=== PATIENT | male | born 1950 | race Caucasian/White ===

== ENCOUNTER → 2016-07-01 11:01 | Outpatient (CLI) | payer MEDICARE, MEDICAID ==
[2015-12-27 11:03] VITALS: BMI 36.5
[~2016-07-01 11:01] MED LIST: ACETAMINOPHEN-C1 TAB PO; CALCIUM 600 +1 EAC3 PO; CALMOSEPTINE OI71 GM TOPICAL; CELEXA10 MG PO; CIPRO500 MG PO; COGENTIN IM; COLACE100 MG PO; COZAAR50 MG PO; DOXEPIN HCL10 MG PO; ELIQUIS5 MG PO; FLUPHENAZINE HC10 MG PO; FUROSEMIDE20 MG PO; HALDOL DECA100 MG/M1 IM; K-TAB10 MEQ PO; LAMICTAL25 MG PO; LASIX20 MG PO; LIDEX 0.05% OIN15 GM TOPICAL; METOPROLOL TART50 MG PO; MIRALAX17 GM PO; MUCINEX600 MG PO; NEURONTIN 300300 MG PO; NORCO 7.5/325 T1 TA1 PO; NYSTATIN1 PWD TOPICAL; OMEPRAZOLE20 M1 PO; PROAIR HFA8.5 GM INH; SENNA PLUS TA1 UDTAB PO; THERMOTABS 1 GM1 GM PO; ULTRAM50 MG PO; VENTOLIN HFA18 GM INH; VITAMIN D5000 UNIT PO; ZOLOFT50 MG PO; ZYPREXA ZYDI5 MG/TAB PO; ZYPREXA10 MG PO
[2016-08-21 10:17] VITALS: BMI 32.5
== END | disposition home or self-care (01) ==
LOC: D.MRI 11:01
DX: M75.101 Unspecified rotator cuff tear or rupture of right shoulder, not specified as traumatic (principal)

== ENCOUNTER → 2016-08-06 18:52 | Outpatient (CLI) | payer MEDICARE, MEDICAID ==
[2015-12-27 11:03] VITALS: BMI 36.5
[2016-08-21 10:17] VITALS: BMI 32.5
== END | disposition home or self-care (01) ==
LOC: D.LABREF 18:52
DX: M19.011 Primary osteoarthritis, right shoulder (principal); Z11.8 Encounter for screening for other infectious and parasitic diseases

== ENCOUNTER 2016-08-20 11:20 | Inpatient (IN) | payer MEDICARE ==
[~2016-08-20] VITALS: Ht 195.6 cm; Wt 124.3 kg
[~2016-08-20 11:20] MED LIST changes: -ACETAMINOPHEN-C1 TAB PO; -CELEXA10 MG PO; -COGENTIN IM; -FLUPHENAZINE HC10 MG PO; -HALDOL DECA100 MG/M1 IM; -MIRALAX17 GM PO; -NORCO 7.5/325 T1 TA1 PO; -SENNA PLUS TA1 UDTAB PO; -VENTOLIN HFA18 GM INH; -ZYPREXA10 MG PO
[2016-08-20] MEDS ORDERED: CELEXA10 MG PO (12:09)
[2016-08-20] MEDS ORDERED: FLUPHENAZINE HC10 MG PO (12:10)
[2016-08-20] MEDS ORDERED: ACETAMINOPHEN-C1 TAB PO (12:12)
[2016-08-20] MEDS ORDERED: VENTOLIN HFA18 GM INH (12:14)
[2016-08-20] MEDS ORDERED: SENNA PLUS TA1 UDTAB PO (12:17)
[2016-08-20] MEDS ORDERED: THERMOTABS 1 GM1 GM PO (12:18)
[2016-08-20] MEDS ORDERED: MIRALAX17 GM PO (12:18)
[2016-08-20] MEDS ORDERED: NORCO 7.5/325 T1 TA1 PO (12:19)
[2016-08-20 12:55] VITALS: BP 193/98; BMI 32.5
--- NOTE | 2016-08-20 13:15 | NUR ---
PT WAS ADMITTED TO [facility] FROM [facility]. THEY SENT THE PT TO OUR ER DUE TO NON-COMPLIANCE AND INCREASED TEARFULNESS AND ANXIETY. PT HAD ELOPED FROM FACILTIY AND REFUSE TO GO BACK INSIDE. UPON ADMIT THE PT WAS COOPERATIVE BUT VERY TEARFUL. THROUGHOUT THE ASSESSMENT THE PT CONTINUED TO BE ANXIOUS AND DID BECOME VERBALLY AGITATED WITH STAFF WHEN ASKED TO GO TO LUNCH. WATCH AND CELL PHONE SENT TO SAFE BUT PT REFUSED TO GIVE HIS CROSS NECKLACE TO STAFF. FALL PRECAUTIONS INITIATED AND PT GIVEN A WALKER BUT REFUSED TO USE IT. WHEELCHAIR WAS GIVEN. WILL CONTINUE TO MONITOR AND INITIATE PLAN OF CARE. PT IS A FULL CODE PER FACILITY AND PUBLIC GUARDIAN JOI HART. VERBAL CONSENT FOR ADMIT GIVEN BY PUBLIC GUARDIAN.
[2016-08-20 13:21] LABS: APPEARANCE CLEAR (CLEAR); COLOR YELLOW (YELLOW); LEUKOCYTE ESTERASE NEGATIVE (NEGATIVE); SPECIFIC GRAVITY 1.005 (1.005-1.020)
[2016-08-20 13:22] LABS: BILIRUBIN NEGATIVE (NEGATIVE); GLUCOSE NEGATIVE (NEGATIVE); KETONE NEGATIVE (NEGATIVE); NITRITE NEGATIVE (NEGATIVE); PROTEIN NEGATIVE (NEGATIVE); UROBILINOGEN NORMAL (NORMAL)
[2016-08-20 13:34] VITALS: BP 193/98
[2016-08-20 13:42] LABS: BASOPHILS 0.2 % (0.0-2.0); EOSINOPHILS 1.6 % (0-7); HEMATOCRIT 45.1 % (42.0-54.0); HEMOGLOBIN 15.6 g/dL (13.5-17.5); IMMATURE GRANULOCYTES 1.2 % (0-5); LYMPHOCYTES 20.1 % (15-50); MCH 32.5 pg (26.0-34.0); MCHC 34.6 g/dL (31.0-37.0); MEAN PLATELET VOLUME 9.5 fL (7.4-10.4); MONOCYTES 6.3 % (2-11); NEUTROPHILS 70.6 % (40-80); RDW 13.2 % (11.5-14.5); WBC 9.4 10x3/uL (4.8-10.8)
[2016-08-20 13:53] LABS: PLATELET COUNT 190 10x3/uL (130-400)
[2016-08-20 14:03] LABS: HEMOGLOBIN A1C 5.8 % (4.8-6.0)
[2016-08-20 14:19] LABS: ALBUMIN 3.8 g/dL (3.4-5.0); ALKALINE PHOSPHATASE 99 U/L (46-116); ALT (SGPT) 42 U/L (10-68); BILIRUBIN - TOTAL 0.39 mg/dL (0.2-1.3); CALC OSMOLALITY 268 mosm/kg (275-300); CALCIUM 8.9 mg/dL (8.5-10.1); CARBON DIOXIDE 27.3 mmol/L (21.0-32.0); CHLORIDE - SERUM 95 mmol/L (98-107); CHOL - HDL RATIO 4.2 ratio (2.3-4.9); CHOLESTEROL, TOTAL 167 mg/dL (0-200); CREATININE - SERUM 0.7 mg/dL (0.6-1.3); HDL CHOLESTEROL 40 mg/dL (32-96); LDL CHOLESTEROL 84 mg/dL (0-100); LDL-HDL RATIO 2.1 ratio (1.5-3.5); POTASSIUM - SERUM 4.6 mmol/L (3.5-5.1); PROTEIN - SERUM 7.1 g/dL (6.4-8.2); SODIUM 133 mmol/L (136-145); THYROID STIMULATING HORMONE 2.22 uIU/mL (0.36-3.74); TRIGLYCERIDE 218 mg/dL (30-200); UREA NITROGEN 11 mg/dL (7-18); eGFR NON AFRICAN AMERICAN > 90 mL/min (90-120)
[2016-08-20 14:21] LABS: GLUCOSE 179 mg/dL (74-106)
--- NOTE | 2016-08-20 15:22 | NUR ---
PATIENT IS RESTLESS. ROLLING IN AND OUT OF THE DAYROOM/DINING ROOM. HYPERVERBAL. UNREDIRECTABLE. HALDOL 5MG IM ADMINISTERED PER RIGHT DELTOID PER ORDERS.
--- NOTE | 2016-08-20 17:01 | PSY ---
PATIENT NAME:POLA AN MEDICAL RECORD: [id number] : 50 LOCATION:[facility]STY Lyn[facility]0 ADMISSION DATE: 08/20/16 ACCOUNT: [id number] PSYCHIATRIC EVALUATION DATE OF EVALUATION: 08/20/16 Initial Psychiatric Workup IDENTIFYING DATA: This is the second Prison admission on one of numerous lifetime psychiatric contacts for this 66-year-old unmarried white male. HISTORY OF PRESENT ILLNESS: This patient was referred to us from [facility]. He has been housed there for a number of years and carries a previous diagnosis of schizophrenia, chronic undifferentiated type, mild mental retardation and possible vascular dementia. The patient was admitted to this facility in November 2015. At that time, he had become agitated, difficult to redirect and had been making suicidal statements. He was stabilized and sent back to [facility]. On this occasion, the patient has again become increasingly restless, poorly cooperative, demanding pain medication. He states that he is scheduled to have surgery on his right shoulder, but this has not been confirmed. Because of worsening behavior and cognition, the patient is now admitted. PAST MEDICAL HISTORY: Significant for past history of upper respiratory infections and restrictive lung disease. He does have hypertension and gastroesophageal reflux disease. FAMILY HISTORY: Noncontributory. SOCIAL HISTORY: The patient is a long-term [facility] resident. He has never maintained consistent employment. As far as can be determined, the patient does not have a substance abuse history. MENTAL STATUS: On exam, the patient is reclining in bed. He is obviously overweight. He is of tall stature. The patient's mood for the most part is euthymic. Affect, however, is quite peculiar and the patient laughs inappropriately. Speech is at times extremely low in volume and very poorly articulated. This appears to be deliberate on the part of the patient. Content of thought is positive for somatic focus regarding pain medication. The patient has nonspecific paranoid ideation as well. The patient is oriented to person and place, but not correctly as to time. Sensorium testing could not be completed due to poor cooperation. DIAGNOSTIC IMPRESSION: AXIS I: Schizophrenia by history, mild mental retardation, vascular dementia by history. AXIS II: No diagnosis. AXIS III: Obstructive lung disease, hypertension, gastroesophageal reflux disease. AXIS IV: Severe. AXIS V: 32. PLAN: 1. The patient is admitted for further medical and psychiatric workup. 2. We will contact surgery to see if the procedure is actually scheduled. 3. Adjust medications as indicated. TRANSINT:[id number] Voice Confirmation ID: [id number] DOCUMENT ID: [id number] WERNER HARDY III, MD at 1701 CC: [id number] DICTATION DATE: 08/20/16 1158 BRIAR WOOD SORTER: 08/20/16 1552 ADM IN [facility] [address] [id number]
[2016-08-20 19:39] VITALS: BP 194/98
--- NOTE | 2016-08-20 19:46 | NUR ---
RECEIVED IN DINING ROOM. SETTING IN DAYROOM AT TABLE EATING A SNACK. CALM AND COOPERATIVE WITH CARE AND ASSESSMENT. SHOOK THIS NURSES HAND. STATES HE WILL TAKE HIS NIGHT MEDS. REDIRECT AND REORIENT NEEDED. CONTINUES TO SET IN DINING ROOM IN WHEELCHAIR. CONTINUE PLAN OF CARE
--- NOTE | 2016-08-20 21:00 | NUR ---
BECOMING INCREASINGLY ABUSIVE VERBALLY TO STAFF AND PEERS. REDIRECTED AND REORIENTED WITH LIMITED SUCCESS.
[2016-08-21 07:22] LABS: RAPID PLASMA REAGIN Non Reactive (Non Reactive)
[2016-08-21 10:17] VITALS: Ht 195.6 cm; Wt 124.3 kg
[2016-08-21 10:18] LABS: FOLATE (FOLIC ACID) - SERUM 15.3 ng/mL (>3.0); VITAMIN D 25 HYDROXY 65.9 ng/mL (30.0-100.0)
[2016-08-21 10:28] VITALS: BP 106/94
--- NOTE | 2016-08-21 15:06 | NUR ---
DR GAINES'S OFFICE CALLED AND INFORMED OF CONSULT FOR SHOULDER PAIN.
--- NOTE | 2016-08-21 16:51 | NUR ---
(B)RECEIVED PATIENT LAYING IN HIS BED YELLING OUT LOUD. ORIENTED X3. MANIPULATIVE WITH STAFF AEB ONE TIME HE WILL BE COOPERATIVE AND THANKFUL FOR CARE AND THE NEXT TIME PATIENT WILL BE TOTALLY UNCOOPERATIVE AND WILL YELL OUT LOUD, CURSE STAFF, FLIP STAFF OFF AND ACCUSE STAFF OF MISTREATING HIM. WHEN PATIENT IS WANTING EXTRA MEAL TRAYS OR SOMETHING SPECIFIC HE WILL BE THANKFUL AND POLITE HOWEVER WHEN STAFF REQUEST SOMETHING OF HIM HE BECOMES DEFIANT AEB PATIENT GETTING IN THE FLOOR, CURSING STAFF, REFUSING TO GET UP AND THEN ULTIMATELY URINATING ON SELF AND FLOOR IN ADDITION TO VOMITING IN FLOOR. STILL REFUSING TO GET UP UNLESS UNDER HIS TERMS OF GETTING TO GO TO HIS ROOM AND LAY DOWN. (I)ADMINISTER MEDS AND MONITOR COMPLIANCE. MONITOR AND REDIRECT FOR INAPPROPRIATE BEHAVIORS. (R)NON COMPLIANT WITH MEDS. POOR REDIRECTION AND REMAINS UNCOOPERATIVE, VIOLENT AND MANIPULATIVE. (P)CONTINUE POC AND MAINTAIN FALL PRECAUTIONS.
--- NOTE | 2016-08-21 17:55 | NUR ---
PATIENT IS INTERMITTENTLY THREATENING SUICIDE. RELATING IF HE COULD GET OUT OF HERE HE WOULD JUST SLIT HIS WRIST. TELLS STAFF TO KILL HIM OR LET HIM OUT SO HE CAN DO IT. WILL BE TEARFUL AND TALKING OF WANTING TO OR WILL BE YELLING AND CURSING TELLING STAFF HE WANTS TO . BEHAVIOR VERY LABILE AND UNPREDICTABLE.
[2016-08-21 20:00] VITALS: BP 181/90
--- NOTE | 2016-08-21 21:50 | NUR ---
PATIENT WAS RECIEVED IN 1136, SLEEPING. WHEN I INTRODUCED MYSELF AND INFORMED THE PATIENT THAT I NEEDED TO LISTEN TO HIS LUNGS, HE DEMANDED TO KNOW WHY I NEEDED TO DO IT. HE SAID THAT HE DIDN'T WANT TO BE BOTHERED, WHEN I TOLD HIM WE NEEDED TO CHECK ON HIM, REACTION TO MEDICATION, HE REFUSED AND TOLD ME TO LEAVE HIM ALONE. LEFT PATIENT ON ONE TO ONE MONITOR WITH SECURITY. HE WENT BACK TO SLEEP, NO DISTRESS OR PAIN NOTED.
--- NOTE | 2016-08-21 23:07 | NUR ---
PATIENT WENT TO THE BATHROOM, WHEN HE CAME OUT, URINATED ON HIMSELF. REFUSED TO REMOVE OR ALLOW SOMEONE TO REMOVE HIS SCRUBS. PATIENT ALSO HAS A TIGHT CRUCIFIX NECKLACE, PATIENT REFUSED TO REMOVE, SAYING IT'S "FERN FRIDAY". PATIENT THREW APPLESAUCE ACROSS THE ROOM AND CURSED AT [facility]. CONTINUE ONE TO ONE MONITOR.
--- NOTE | 2016-08-21 23:40 | NUR ---
PATIENT ON ONE TO ONE WATCH WITH SECURITY PERSON. PATIENT IN BED, GOT UP TRIED TO HIT THE SECURITY PERSON. PATIENT WALKING IN HALLWAY, CURSING STAFF. 10 MG OF HALDOL I.M. WAS GIVEN AT 2338.
--- NOTE | 2016-08-22 08:40 | NUR ---
B) Patient is awake and alert, he is labile. One minute polite, the next cursing and telling everyone to "F" off. He would not allow me to take his vital signs, patient started trying to cut self with plastic fork at breakfast meal. Had to take fork and meal away as he is cursing and asking staff to bring him a razor to kill himself. Patient is angry, threatening, throwing things around, he is noncompliant. He is not redirectable with any staff members talking to him. I) Haldol 10 mg IM provided in right hip. R) Patient continues to curse and yell and make demands. P) Continue plan of care.
--- NOTE | 2016-08-22 09:00 | PN ---
PATIENT:POLA AN MEDICAL RECORD: [id number] LOCATION:[facility]STY [facility]ne ADMISSION DATE: 08/20/16 PROGRESS NOTE DATE OF SERVICE: 08/21/2016 SUBJECTIVE: The patient voices a number of profanities and invectives. OBJECTIVE: Staff notes indicate that the patient has exhibited extremely disinhibited behavior. He is agitated, attention-seeking and very difficult to redirect. He did require intramuscular Haldol yesterday. He has been using racial slurs and has been deliberately agitating other patients. On exam, the patient's mood is irritable. Affect is extremely brittle and labile. Speech is rambling and overly loud and characterized by profanities. Content of thought is positive for paranoid delusional ideation. Sensorium shows no change. ASSESSMENT: No change in diagnosis. PLAN: 1. We will administer Haldol 10 mg IM immediately for control of agitation. 2. Proceed with Haldol Decanoate 100 mg IM later today. 3. We will discontinue Zyprexa. 4. P.r.n. Cogentin for dystonic symptoms. 5. Continue other current medications. TRANSINT:[id number] Voice Confirmation ID: [id number] DOCUMENT ID: [id number] WERNER HARDY III, MD at 0900 CC: [id number] DICTATION DATE: 08/21/16 1202 PHARMACY SERVICES REPRESENTATIVE: 08/21/16 1735 [place] [address]
--- NOTE | 2016-08-22 09:33 | NUR ---
Offered patient his am meds he refused all except his neurontin, did provide that one pill, he is demanding and saying "Give me a razor blade" He then says "No one cares about me". Patient argues no matter what. He has wet on himself and he will not allow staff to assist and he will not assit himself.
--- NOTE | 2016-08-22 11:00 | NUR ---
Patient is acting out, he is wetting the bed, he is vomitting. He is making demands for a cell phone. Patient is irritable.
--- NOTE | 2016-08-22 11:45 | NUR ---
PT CONTINUES TO BE 1:1 WITH STAFF DUE TO HIS LABILE BEHAVIOR AND SUICIDAL IDEATIONS. ATTEMPTS AT CALMING PATIENT OR EDUCATING HIM IN REGARDS TO ALLOWING STAFF TO HELP HIM CHANGE HIS URINE SOCKED CLOTHING AND BRIEFS ARE UNSUCCESSFUL. WILL CONTINUE TO MONITOR AND CONTINUE WITH PLAN OF CARE.
--- NOTE | 2016-08-22 14:43 | NUR ---
Patient is making demands and getting in MHT's and engineerings face. Patient received Haldol 10 mg IM in right hip, he requested his neurontin and tylenol, but when I went to give the meds to him. He said "I'm not taking the Tylenol" I said ok and then he said "I'm not taking any of it" I said ok and then walked out. He said "no, now I changed my mind, I want the neurontin" I said No, sir and walked out of the room. Patient is playing games and trying to manipulate and control.
--- NOTE | 2016-08-22 14:59 | NUR ---
SW CALLED [facility] TO DISCUSS TRANSFER OF PT. THEY STATED THEY COULDN'T NOT RECIEVE THE TRANSFER DUE TO IT BEING A LATERAL TRANSFER. [facility] STATED THEY HAD NO BED AVAILABILITY.
[2016-08-22 19:30] VITALS: BP 164/95
--- NOTE | 2016-08-22 23:20 | NUR ---
Patient in 1136 with 1:1 monitor. He is hard to understand due to dentition. Patient is remorseful and says he's sorry, than gets agitated. He asked me "How would you like to be in here?" I said I wouldn't like it, so I would recommend trying to get better. He appeared to understand that. Patient non-violent at this time. Cooperated with medication, except for skin cream. Continue to monitor, continue plan of care.
--- NOTE | 2016-08-23 06:48 | NUR ---
Patient was recieved in 1136 sitting on the side of the bed. Patient was crying about his shoulder and how he was unfairly treated here. He said this place was worse than a long term. He asked why they called a code kathie, why did they need 7 people to subdue him. He asked me to pray with him, which I did. He said tell everyone, I'm sorry, he goes from agitation to tearfulness. Continue to monitor
--- NOTE | 2016-08-23 09:00 | NUR ---
B) Patient is awake and alert, he is calming down, he spoke with [facility] [employer]. He apologized and said he was no longer suicidal. He contracts for no self harm. He ambulates in the room, he is a 1:1 with social security assessor. He has been polite and compliant with medications. He refused his lasix. I) Provide prescribed meds, redirect to appropriate behavior. R) Patient is compliant with meds and he is following direction today, he has apologized to this nurse and wanted to apologize to Soheila because he admits he was not acting appropriate. He did talk about his today and he was a bit tearful, but he is better in behavior and he is praying and he is reading scripture out of the Bible. P) Continue plan of care.
[2016-08-23 09:40] VITALS: BP 174/92
--- NOTE | 2016-08-23 15:27 | NUR ---
Patient is much more amiable today, he is talking nicely no cursing, no S.I. and H.I.
[2016-08-23 19:30] VITALS: BP 113/53
--- NOTE | 2016-08-24 02:19 | NUR ---
B) Recieved paient in room 1136 with security at the door, alert and oriented to self and hospital, calm and cooperative this shift, patient said he was sorry for prior behavior earlier this week, I) Administered perscribed medications, redirected as needed, R) Medication compliant, patient was sleepy or asleep most of the shift, arrouses to name, P) Continue plan of care, continue one on one with security.
[2016-08-24 08:00] VITALS: BP 148/64
--- NOTE | 2016-08-24 10:40 | NUR ---
B) Patient remains on 1:1 and continues to still need security as he did grab a tube of medicine out of this nurses hand and the swab to apply med to his face, patient remains psychotic, he did say he still felt like dying, but did not give a plan, he refuses his lasix, but he has 3+ edema to bilateral lower legs. He is hyperverbal and hyper presybeterian. I) Provide prescribed meds. R) Patient requests every med be explained to him and asks "Do you think I should take it" R) Patient has been compliant to take meds except lasix. He also allowed MHT's to help clean him up, but he can do more for himself. P) Continue plan of care.
--- NOTE | 2016-08-24 12:28 | NUR ---
Patient is now asking for a T.V., Brii Madyson said someone told him he could have a T.V. This was never mentioned to me, but there are no T.V.'s in the room and with his labile mood he can not be around the other patients to watch T.V. as he is liable to start acting out in front of them.
[2016-08-24 19:30] VITALS: BP 187/92
--- NOTE | 2016-08-25 01:05 | NUR ---
B) Recieved sitting in room 1136 with security one on one, alert and oriented to self and hospital, calm and cooperative with staff, I) Administered perscribed medications, redirected as needed, R) Medication compliant, no outbursts of aggression, P) Continue plan of care, continue to monitor.
[2016-08-25 07:00] VITALS: BP 177/90
--- NOTE | 2016-08-25 10:26 | NUR ---
PT RECEIVED SITTING UP IN BED IN ROOM 1136. PT IS ALERT AND ORIENTED TO PERSON AND PLACE. PT DENIES PAIN. NO AGGRESSION NOTED. PT IS CALM, PLEASANT AND IS SOCIAL WITH STAFF AND PEERS. NO HALLUCINATIONS OR DELUSIONS NOTED OR REPORTED. PT IS COOPERATIVE WITH STAFF AND IS COMPLIANT WITH MED'S AND CARE. PT IS MONIOTRED BY SECURITY TO ENSURE SAFETY. PT IS REDIRECTED NEEDED. SAFETY MEASURES ARE IMPLEMENTED. CONTINUE WITH PLAN OF CARE. WILL CONTINUE TO MONITOR.
[2016-08-25 19:30] VITALS: BP 153/72
--- NOTE | 2016-08-25 20:03 | NUR ---
RECEIVED IN HALLWAY OUTSIDE OF PATIENT ROOM. SITTING WITH GEM EXPERT. ZEYNEP SAVAGE COOPERATIVE WITH CARE AND ASSESSMENT. SOCIALIZING WITH STAFF AND PEERS. NO SIGNS OF AGGRESSION. DENIES THOUGHTS OF SELF HARM. ENCOURAGE TO EXPRESS NEEDS AND FEELINGS. CONTINUES TO SIT IN CHAIR RELAXING SOCIALIZING. CONTINUE PLAN OF CARE
[2016-08-26 08:32] VITALS: BP 169/74
[2016-08-26] MEDS ORDERED: COGENTIN IM (08:47)
[2016-08-26] MEDS ORDERED: ZYPREXA10 MG PO (08:48)
--- NOTE | 2016-08-26 08:49 | NUR ---
Received patient in room 1136, monitored per security to ensure safety. Alert and oriented to name and place. No aggression noted. Calm and cooperative with care. Pleasant and social with staff and peers. No hallucinations or delusions noted or reported. Patient was compliant with medications last night. Denies any thoughts of self harm. Encouraged to express feelings. In good behavior control with no harm to self or others. Safety maintained. Continue with plan of care.
[2016-08-26] MEDS ORDERED: HALDOL DECA100 MG/M1 IM (08:51)
--- NOTE | 2016-08-26 08:56 | PN ---
PATIENT:POLA AN MEDICAL RECORD: [id number] LOCATION:MISTY Ferrara112 ADMISSION DATE: 08/20/16 PROGRESS NOTE DATE OF SERVICE: 08/22/2016 SUBJECTIVE: The patient claims that no one is paying attention to him. OBJECTIVE: The patient has continued to show very volatile behavior. He has become combative on several occasions and security has had to be called. In order to help manage the patient, he has received p.r.n. injections of Haldol twice to control his agitation. He did receive Haldol Decanoate 100 mg IM yesterday. Routine Zyprexa 10 mg twice a day has been reinstituted. On exam, the patient's mood is very irritable. Affect is childlike and brittle. Speech is characterized by profanities and yelling. Content of thought is positive for suicidal statements as well as paranoid delusional ideation. Sensorium shows no change. ASSESSMENT: No change in diagnosis. PLAN: 1. We will maintain current treatment regimen. 2. Continue close observation. TRANSINT:[id number] Voice Confirmation ID: [id number] DOCUMENT ID: [id number] WERNER HARDY III, MD at 0856 CC: [id number] DICTATION DATE: 08/22/16 1140 ADVERTISING DISPLAY ROTATOR: 08/22/16 1845 ADM IN [place] [id number] [id number]
--- NOTE | 2016-08-26 12:00 | NUR ---
[facility] staff here to transport patient back to facility. Calm and cooperative. Pleasant and social with others. Discharged without incident. All personal belongings released to patient.
--- NOTE | 2016-08-26 13:41 | PN ---
PATIENT:POLA AN MEDICAL RECORD: [id number] LOCATION:MISTY Ferrara112 ADMISSION DATE: 08/20/16 PROGRESS NOTE DATE OF SERVICE: 08/23/2016 SUBJECTIVE: The patient's case was discussed with staff. He has no new complaint. OBJECTIVE: The patient has become more compliant taking some of his medications. He has apologized to some of the nursing staff for his behavior and he denies suicidal thoughts. ASSESSMENT: No change in diagnoses. PLAN: Current medicines have been reviewed and will be maintained. Long-term prognosis is guarded. TRANSINT:[id number] Voice Confirmation ID: [id number] DOCUMENT ID: [id number] MELISSA CAPPS MD at 1341 CC: [id number] DICTATION DATE: 08/23/16 1348 CREW PERSON: 08/23/162030 DIS IN 08/26/[address] [facility] [address] [place] [address]
--- NOTE | 2016-08-28 10:02 | DS ---
PATIENT:POLA AN :50 MEDICAL RECORD: [id number] DISCHARGE SUMMARY ADMISSION DATE: 08/20/16 DISCHARGE DATE: 08/26/16 DATE OF ADMISSION: 08/20/2016 DATE OF DISCHARGE: 08/26/2016 HISTORY OF PRESENT ILLNESS: Second Detention admission for this 66-year-old unmarried white male. The patient carries a previous diagnosis of schizophrenia, mild mental retardation and vascular dementia. The patient had been admitted to other psychiatric facilities throughout his lifetime. At the time of this admission, the patient had become very restless, very poorly cooperative, demanding of pain medication and had been making suicidal statements as well. For further details, please see previously dictated history. COURSE IN THE HOSPITAL: The patient was seen in consultation by Dr. Morgan. Dr. Morgan noted the presence of hypertension, osteoarthritis, GERD, restrictive lung disease and right shoulder pain. The patient presented a treatment challenge. From the onset, he was extremely uncooperative. He became quite combative with routine care. He was extremely hostile and demeaning toward staff in terms of his behavior and his comments. He did require the use of a intramuscular Haldol for control of his extreme agitation and combativeness. On several occasions, assistance had to be brought to the unit in order to administer care and medication. It was elected to administer Haldol Decanoate 100 mg IM on the third hospital day. He was also treated with Zyprexa 10 mg twice a day and maintained on a previous dose of Celexa 10 mg daily. On this regimen of medication, the patient began to show some improvement and by the time of discharge, was much more cooperative and calm. He was felt to be stable enough to return to the correction environment. FINAL DIAGNOSES: AXIS I: Schizophrenia, chronic undifferentiated type, vascular dementia. AXIS II: Mild mental retardation, cluster B personality traits. AXIS III: Hypertension, osteoarthritis, restrictive lung disease, gastroesophageal reflux disease. AXIS IV: Moderate. AXIS V: 40. PLAN: 1. The patient is discharged on current medication. Haldol Decanoate should be administered at 100 mg IM every 28 days. 2. Diet and activities as tolerated. 3. Follow up with primary care physician. TRANSINT:[id number] Voice Confirmation ID: [id number] DOCUMENT ID: [id number] DISCHARGE SUMMARY REPORT [id number] CADWALPOLA KNAPP III, WERNER Pacheco MD at 1002 CC: [id number] DICTATION DATE: 08/26/16 1126 ART TEACHER: 08/27/16 0044 DIS IN 08/26/16 [facility] [address] [place] [address]
== END 2016-08-26 12:00 | DRG 885 ==
LOC: D.PSYCH 11:20
PROVIDERS: ADMIT Psychiatry & Neurology Psychiatry
DX: F20.5 Residual schizophrenia (principal); F01.51 Vascular dementia, unspecified severity, with behavioral disturbance; F79 Unspecified intellectual disabilities; I10 Essential (primary) hypertension; M25.511 Pain in right shoulder; L40.9 Psoriasis, unspecified; K21.9 Gastro-esophageal reflux disease without esophagitis; J98.4 Other disorders of lung

== ENCOUNTER 2019-12-30 11:25 | Inpatient (IN) | payer MEDICARE ==
[~2019-12-30 11:25] MED LIST changes: +ACETAMINOPHEN-C1 TAB PO; +CELEXA10 MG PO; +COGENTIN IM; +FLUPHENAZINE HC10 MG PO; +HALDOL DECA100 MG/M1 IM; +MIRALAX17 GM PO; +NORCO 7.5/325 T1 TA1 PO; +SENNA PLUS TA1 UDTAB PO; +VENTOLIN HFA18 GM INH; +ZYPREXA10 MG PO
[2019-12-30] MEDS ORDERED: NORVASC10 MG (15:50)
[2019-12-30] MEDS ORDERED: LIPITOR10 MG (15:50)
[2019-12-30] MEDS ORDERED: LIPITOR10 MG PO (15:51)
[2019-12-30] MEDS ORDERED: SYMBICORT 16010.2 GM INH (15:52)
[2019-12-30] MEDS ORDERED: FISH OIL 1,0001 CA1 PO (15:53)
[2019-12-30] MEDS ORDERED: NEURONTIN 400400 MG PO (15:53)
[2019-12-30] MEDS ORDERED: MUCINEX600 MG (15:54)
[2019-12-30] MEDS ORDERED: CLARITIN 10 MG10 MG PO (15:55)
[2019-12-30] MEDS ORDERED: LISINOPRIL5 MG PO (15:55)
[2019-12-30] MEDS ORDERED: IPRAT-ALBUT 0.5-3 ML (15:55)
[2019-12-30] MEDS ORDERED: MAG-OX 400 MG400 MG PO (15:56)
[2019-12-30] MEDS ORDERED: METOPROLOL TART25 MG PO (15:57)
[2019-12-30] MEDS ORDERED: GLUCOPHAGE500 MG (15:57)
[2019-12-30] MEDS ORDERED: PROCARDIA XL60 MG (15:58)
[2019-12-30] MEDS ORDERED: HYDROCODON-ACE1 EAC2 PO (15:59)
[2019-12-30] MEDS ORDERED: PROTONIX FOR OR40 MG PT (15:59)
[2019-12-30] MEDS ORDERED: PAXIL40 MG PO (16:00)
--- NOTE | 2019-12-30 16:00 | NUR ---
The patient arrived here from [facility]. He is brought by two staff. He is in w/c and he can self propel. He is able to stand and transfer with staff assist. He has a scratch to his right lower ear lobe. He has a scratch to his lower back. He has bilateral 3+ edema in his feet and lower legs. He is a full code he is under the services of Carline Wall with Adult Protective Services. Apparently at the [facility] he was noncompliant with medications and he has a urinary tract infection. His behavior was changing and he began talking out of his head. He became increasingly more paranoid and became aggressive with staff. He has a hx of schizophrenia and he tells us that he is allergic to Haldol and that it worsens his behavior and he becomes more aggressive. At this time he is pleasant and he said "I won't hurt you ma'am." He has a cell phone, watch, flashlight, and a wallet. Called Admissions to pick it up as the patient wants to sign for it. Admissions relayed that it will be awhile before they are able to pick it up. Continue to monitor his mood and behavior.
[2019-12-30] MEDS ORDERED: BACTRIM DS TAB1 EAC1 PO (16:03)
[2019-12-30] MEDS ORDERED: ZYPREXA10 MG ×2 (16:04)
[2019-12-30 16:14] VITALS: BP 139/72; BMI 37.2
--- NOTE | 2019-12-30 16:42 | NUR ---
The patient did bring his personal w/c.
[2019-12-30 20:19] VITALS: BP 133/75
--- NOTE | 2019-12-30 22:22 | NUR ---
RECEIVED PATIENT IN DAYROOM, IN WHEEL CHAIR, LABILE, HYPERVERBAL, REFUSED MEDS INTIALLY BUT DID TAKE THEM HAPPILY, CONFUSED, LITTLE GRANDIOSE THINKING. WILL FOLLOW POC
[2019-12-31 07:27] LABS: BASOPHILS 0.2 % (0-2); HEMOGLOBIN 14.3 g/dL (13.5-17.5); IMMATURE GRANULOCYTES 0.9 % (0-5); MCH 31.6 pg (26.0-34.0); MCHC 33.3 g/dL (31.0-37.0); MCV 94.9 fL (80.0-100.0); MEAN PLATELET VOLUME 9.6 fL (7.4-10.4); MONOCYTES 6.6 % (2-11); NEUTROPHILS 67.3 % (40-80); PLATELET COUNT 245 10x3/uL (130-400); RBC 4.53 10x6/uL (4.20-6.10); RDW 12.9 % (11.5-14.5); WBC 12.2 10x3/uL (4.8-10.8)
[2019-12-31 07:58] LABS: CHOL - HDL RATIO 3.9 ratio (2.3-4.9); LDL-HDL RATIO 2.1 ratio (1.5-3.5)
[2019-12-31 08:57] VITALS: Wt 66.9 kg
--- NOTE | 2019-12-31 11:45 | NUR ---
PT REFUSED HIS MEDICATIONS STATING THAT IF THE NURSE CANT NOT SPELL HIS NAME THEN HE CAN NOT TAKE MEDS FROM HER. NURSE ASKED TO SCAN PT ARMBAND PT REFUSED. PT REFUSED MEDS STATING I HAVE THE RIGHT TO REFUSE ALL THOSE MEDS YOU HAVE LINED OUT FOR ME TAKE THEM YOURSELF." NURSE ATTEMPTED TO EDUCATE PT ON HOW REFUSING MEDS MAKES STAYS LONGER IN THE UNIT. THE DOCTOR IS THE ONLY ONE THAT CAN RELEASE PTS.
[2019-12-31 14:10] VITALS: BP 166/74
--- NOTE | 2019-12-31 15:09 | NUR ---
PT WAS ON ANTIBIOTICS AT [facility] FOR A UTI. UNABLE TO OBTAIN U/A DUE TO PT PREVIOUS ANTIBIOTIC USAGE.
--- NOTE | 2019-12-31 15:14 | NUR ---
PT INCREASING BECAME AGITATED, DEMANDING. STAFF ATTEMPTED TO RESOLVE PTS NEEDS. PT INCREASED IN VERBAL AGGRESSION. ATIVAN 0.5 MG IM ADMINISTERED PER DR. CAPPS ORDER. WILL CONT TO MONITOR.
--- NOTE | 2019-12-31 17:50 | NUR ---
PT CAME TO NURSE AND REQUESTED SOME MORE ATIVAN WITHOUT ALL THE PEOPLE TO WATCH. NURSE ADMINISTERED ATIVAN 0.5 MG PO FOR ANXIETY. PT TOOK ALL MEDS DUE AT THAT TIME. PT IS FRIENDLY WITH STAFF AND PEERS. PT CAN BE LABILE AT TIMES. REDIRECT BEHAVIOR AND REORIENT IF NEEDED. PT REQUEST 1X OR 2X BRIEFS AND [facility] WAS REQUESTED TO BRING THE SIE THE PT REQUIRES. PT IS IN A W/C. CHAIR ALARM IN PLACE AND ACTIVE. WILL CONT PLAN OF CARE. PT DID REFUSE ALL MEDS THIS A.M.
--- NOTE | 2019-12-31 20:00 | NUR ---
RECEIOVED IN DAYROOM, SOCIALIZING WITH STAFF. CALM AND COOPERATIVE WITH CARE AND ASSESSMENT. REFUSED TO TAKE MEDICATIONS TONIGHT FROM ANYONE. REDIRECT AND REORIENT NEEDED. CONTINUE PLAN OF CARE.
[2019-12-31 20:08] VITALS: BP 136/73
--- NOTE | 2020-01-01 09:18 | NUR ---
pt sitting in w/c socializing with peers. pt has been friendly with staff and peers. pt conts to refuse medications. pt took some select meds in food this shift. staff conts to encourage pt to take meds, elevate feet due to 4+ swelling noted in bilateral legs and ankles. pt is confused and alert to person, place and time. pt can be argumentative at times. staff will cont to redirect behaviors and encourage pt to comply with meds and care given. pt can stand and transfer per self. minimual requirement required with adls. pt is eating well and compliant with FSBS. chair alarm in place and active. will cont plan of care.
[2020-01-01 09:54] VITALS: BP 123/73
--- NOTE | 2020-01-01 10:02 | NUR ---
The patient continues to talk nonstop. He tells staff we should know all 35 of the patient rights. He enjoys arguing. He is in his own w/c and he self propels easily. Provide prescribed meds. Staff crushed some of his meds in his coke and his oatmeal and he consumed part of them. Will monitor his behavior. He has not shown any aggression this am. Continue POC.
--- NOTE | 2020-01-01 15:37 | HP ---
PATIENT: POLA AN MEDICAL RECORD: [id number] ACCOUNT: [id number] LOCATION:[facility] : 50 ADMISSION DATE: 12/30/19 PCP: TONI MARKHAM MD HISTORY AND PHYSICAL EXAMINATION IDENTIFYING DATA: The patient is a 69-year-old male patient that was admitted from a local shelter, who appears older than his stated age. CHIEF COMPLAINT: Increased delusions and agitated behavior. HISTORY OF PRESENT ILLNESS: The patient is a long-term resident of the facility. Resident is ADL dependent and is on a consistent carb diet. The patient has tangential thoughts, which resolved around temple. The patient was reportedly aggressive with his roommate. The patient reports that his roommate will be sad because he will not go to watch TV because he had the remote from the patient. The patient then began refusing medications. Staff report that he was talking out of his head that became very paranoid and also became very aggressive with staff within the last couple of days. The patient has been on various medications that have helped stabilize him, most recently with Zyprexa 5 mg in the morning and 10 mg at bedtime. The patient reports what does not help him is his current roommate who he states is a felon. The patient has a history of schizophrenia and some dementia with behaviors. PAST MEDICAL HISTORY: Includes urinary tract infection, insomnia, and GERD. He has muscle weakness. He has dysphagia, muscle wasting and atrophy, heart failure, COPD, and hyperlipidemia. PAST PSYCHIATRIC HISTORY: Includes, Schizoaffective disorder, bipolar 1, paranoid schizophrenia, schizophrenia unspecified, unspecified dementia without behavioral disturbances, vascular dementia without behavioral disturbances, and schizoaffective paranoid schizophrenia. ALLERGIES: INCLUDE HALDOL. CURRENT MEDICATIONS: Include, Zyprexa 5 mg p.o. every a.m., Zyprexa 10 mg every bedtime, Neurontin 400 mg 4 times daily, metformin, metoprolol, Procardia-XL, hydrocodone/acetaminophen 7.5/325, omeprazole, Protonix, Paxil, MiraLax, senna, Docusate sodium, Bactrim, acetaminophen, albuterol, amlodipine, Eliquis, Lipitor, Symbicort, calcium - vitamin D3, citalopram, fish oil, Lasix 20 mg, gabapentin 400 mg take by mouth 3 times daily, Humibid 600 mg by mouth 2 times daily, and nebulizer as needed, Lisinopril, Claritin, and magnesium oxide. SOCIAL HISTORY: The patient reports that he was and that his in 2008, right after his granddaughter had the previous month before. The patient reports he worked various jobs. He reports that he has 2 years of college; however, he has not worked since 1995 related to a disability. The patient reports that he gave up smoking. He denies any alcohol use or any illegal substance. TRAUMA: The patient doesn't want to discuss any emotional, physical, or sexual trauma. MENTAL STATUS EXAM: The patient is alert and oriented to person, place, time, and event. His speech is low rate, low tone, low volume. The patient has good eye contact. Patient is sitting in a wheelchair. No evidence of psychomotor HISTORY AND PHYSICAL [id number] CADWALLADER,POLA D retardation or agitation. His mood is depressed and anxious. His affect is flat, blunted, and narrow in range. The patient does not exhibit suicidal ideation or homicidal ideation. The patient does have some auditory hallucinations, which are related to Harlan and temple. The patient does not appear to have any visual hallucinations. The patient does have some mild delusions. His general knowledge is appropriate for his education, but difficult to assess. His digit span was difficult to assess and deferred. Problem interpretation is minimal to absent. His judgment and insight are poor. His impulsivity is high. His memory is fair for both recent and remote events. His strengths are his ability to communicate his needs. His weaknesses are poor psychosocial support. DIAGNOSES: AXIS I: Dementia and schizophrenia. AXIS II: Deferred AXIS III: Include hyperlipidemia, hypertension, osteoporosis, insomnia, hypokalemia, GERD, AFib, vitamin D deficiency, chronic back pain, COPD, and diabetes. AXIS IV: Moderate stressors. AXIS V: Global assessment of function is 30. PLAN: At this time, the patient is to be admitted to the hospital secondary to his aggressive, agitated, and confused behaviors associated with a dementing illness and chronic serious mental illness. He will be comprehensively evaluated from both a medical, psychological, and social standpoint. He will be treated with both mood and thought stabilizing medications and memory enhancing medications. His long-term prognosis is guarded. Time spent greater than 30 minutes. Dictated By: Shari Gautam APN I have interviewed/examined the above patient and agree with these documented findings. TRANSINT:[id number] Voice Confirmation ID: [id number] DOCUMENT ID: [id number] Dictated By: SHARI GAUTAM I have interviewed/examined the above patient and agree with these documented findings. MELISSA CAPPS MD at 1537 at 1129 CC: [id number] DICTATION DATE: 12/30/191810 ZINC PLATE CUTTER: 12/30/19 2207 ADM IN [facility] [address] [id number]
--- NOTE | 2020-01-01 17:05 | NUR ---
PT SITTING IN 1136 AT THIS TIME. STAFF ATTEMPTED MULTIPLE TIMES TO REDIRECT PT INTO OTHER ROOM WITH STAFF. PT CONT TO COME INTO THE KITCHEN REMOVING FOOD FROM THE FRIDGE DESPITE STAFF REDIRECTING PT TO NOT REMOVE FOOD FROM THE FRIDGE. PT CONTS TO REFUSED ALL MEDS. PT IS VERBALLY AGGRESSIVE WITH STAFF, ARGUEMENTATIVE. WHEN ASKED TO COME BACK TO THE DAYAREA PT STATED "WELL LUDWIG BEEN PISSING AND SHITTING SO WHEN I EAT I HAVE TO SHIT AND IF I LEAVE NEXT TIME ILL SHIT IN YOUR HAND AND YOULL HAVE TO CLEAN IT UP. IM NOT DOING IT SO GO AWAY AND GET OUT OF HERE" WHILE WAVING HIS HAND DISMISSIVELY. GEODON 10 MG IM GIVEN PER DR. CAPPS ORDER. STAFF DID HAVE SECURITY PRESENT DURING ADMINISTRATION OF PRN. WILL CONT TO MONITOR PTS BEHAVIOR.
--- NOTE | 2020-01-01 18:00 | NUR ---
CONTINUES TO REFUSE MEDS AND BE ARGUMENTIVE WITH STAFF.THREATENING STAFF WITH LAW SUITE FOR HOLDING HIM HERE AND FOR GIVING HIM A SHOT.
--- NOTE | 2020-01-01 18:51 | NUR ---
PT STATED "WHAT YALL ARE DOING HERE IS AGAINST THE LAW AND THAT THE LAW THAT RUNS THE SKILLED NURSING APPLIES HERE AND YALL ARE GOING TO THE COURT" NURSE ATTEMPTED TO EXPLAIN THAT THIS UNIT AND THE SKILLED NURSING ARE DIFFERENT. HE STATED WELL SAVE IT FOR THE INSURANCE ADMINISTRATOR. NURSE DID NOT ARGUE STATED OKAY.
[2020-01-01 20:00] VITALS: BP 121/68
--- NOTE | 2020-01-01 21:10 | NUR ---
RECEIVED IN DAYROOM. SITTING IN A WHEELCHAIR WITH PEERS AT HIS SIDE. CALM AND COOPERATIVE WITH CARE AND ASSESSMENT. NO SIGNS OF AGGRESSION. NO SIGNS OF PARANOIA. REDIRECT AND REORIENT NEEDED. CONTINUES TO SIT CALMLY IN DAYROOM. CONTINUE PLAN OF CARE.
--- NOTE | 2020-01-01 22:25 | NUR ---
PATIENT REFUSED ALL PM MEDS.
--- NOTE | 2020-01-01 23:24 | NUR ---
UNCOOPERATIVE. PULLED BED ALARM OUT FROM UNDER HIMSELF AND PUT ON THE FLOOR. ALARM SOUNDING. PLACED RYLAND PAD BACK OM BED.
--- NOTE | 2020-01-02 07:00 | NUR ---
REC'D PT IN HALLWAY WITH PEERS BY NURSES STATION. PT DEGRADING STAFF AT THIS TIME. PT IS VERY RUDE AND DEMANDING TO STAFF AND PEERS. ASSESSMENT COMPLETED. PT CAN BECOME EASILY AGITATED. REDIRECT AND REORIENT NEEDED. PT REFUSED MOST MORNING MEDS. DEMANDED DOUBLE PORTIONS FOR BREAKFAST. CALLED [facility] FOR PTS REQUEST. FALL PRECAUTIONS IN PLACE. WILL CPOC.
[2020-01-02 09:18] VITALS: BP 141/70
--- NOTE | 2020-01-02 11:49 | NUR ---
The patient refused to get weighed this am and he refused to do the incentive spirometer. He said "Unless the says I have I am not doing it."
--- NOTE | 2020-01-02 19:27 | NUR ---
RECEIVED IN DAYROOM. SITTING ON THE SOFA WITH EYES CLOSED. RESPONDS TO VOCIE. CALM AND COOPERATIVE WITH ASSESSMENT AT THIS TIME. NO SIGNS OF AGGRESSION. REDIRECT AND REORIENT NEEDED. CONTINUES TO SIT CALMLY IN DAYROOM. CONTINUE PLAN OF CARE.
[2020-01-02 20:04] VITALS: BP 161/94
[2020-01-02 20:06] VITALS: BP 161/94
--- NOTE | 2020-01-02 21:00 | NUR ---
pt refused all medications at this time. attempted to crush meds for administration. pt took some of meds and refused rest of med.
--- NOTE | 2020-01-03 00:03 | NUR ---
pt called for mht to come into his room. mht called for nurses to come to pts room. pt was sitting in w/c in room stating "yall are hilter and yall are going to kill me tonight. she isnt a nurse she isnt nothing." pt then began asking nursing staff their education levels stating "yall are not 4 year nurses yajames cant take care of me. cheko aint doctors." staff attempted to redirect behaviors 3x unable to redirect paranoid behaviors. staff offered to reposition bed which was done. pt stated to nurse "tell me my age. cause you are going to have to in the court of law. read me my pts rights." nurse explained that he had a copy of his pts rights. he was well aware of pts rights. and that the nurse was treating pt within his pt rights." pt became verbally aggressive with staff. geodon 10 mg im given per order. 3x assist assisted with pts medication administration. pt refused to lay down in bed at this time. pt is at the nurses station with nurses at this time. pt stated "he will throw himself into the floor so that we can pick him up." will cont to monitor behaviors at this time.
--- NOTE | 2020-01-03 01:50 | NUR ---
prn effective at this time. pt in bed.
--- NOTE | 2020-01-03 08:57 | NUR ---
Nutrition Follow-up: Diet: Diabetic, Double Portions PO intake: 100% x 6 meals Last BM: 01/03/20 x 2. WT: 289# (12/31/19); Admit WT: 289# (12/30/19) Meds noted: senokot, miralax, lasix, metformin Labs noted: POC Glu 129(H), A1C 6.6(H) Recommend continue current diet. RD following.
--- NOTE | 2020-01-03 12:00 | NUR ---
RECEIVED IN HALLWAY OUTSIDE OF NURSES STATION. CALM AND COOPERATIVE WITH CARE AND ASSESSMENT. NO AGGRESSION TODAY. RUDE AND DEMANDING TO STAFF AT TIMES. REDIRECT AND REORIENT NEEDED. EATING AT THIS TIME. CONTINUE PLAN OF CARE.
[2020-01-03 19:51] VITALS: BP 175/85
--- NOTE | 2020-01-03 20:13 | NUR ---
RECEIVED IN DINING AREA. DEFIANT WITH CARE. CALLS THIS NURSE HITLER. ENOURAGE TO TAKE PM MEDS BUT REFUSED. REDIRECT AND REORIENT NEEDED. CONTINUES TO SIT IN DINGIN AREA. CONTINUE PLAN OF CARE.
--- NOTE | 2020-01-04 00:30 | NUR ---
Barricading door. Educated that this is not allowed due to safety. Voiced understanding.
--- NOTE | 2020-01-04 02:33 | NUR ---
Continues to barricade door. Called nurse Linda when redirected not to barricade door. Then stated he wanted MHT arrested for coming into his room to check on him.
--- NOTE | 2020-01-04 05:16 | NUR ---
PT REFUSES AM FSBS, INSULIN AND AM PROTONIX. EDUCATED PT ON IMPORTANCE OF INSULIN. PT VERBALIZED UNDERSTANDING AND STILL REFUSED.
--- NOTE | 2020-01-04 13:00 | NUR ---
REC'D PT IN BED WITH EYES OPEN. PT IS REFUSING TO GET OUT OF BED. PT IS VERY RUDE AND DEMANDING WITH STAFF. PT BECAME AGGRESSIVE WITH STAFF. CODE MUSCLE CALLED FOR ASSISTANCE. PRN GEODON 10MG IM GIVEN PER PRN ORDER. PT REFUSES MORNING MEDS X 3. REDIRECT AND REORIENT NEEDED. FALL PRECAUTIONS IN PLACE. WILL CPOC.
--- NOTE | 2020-01-04 15:08 | PN ---
PATIENT:POLA AN MEDICAL RECORD: [id number] LOCATION:[facility] ADMISSION DATE: 12/30/19 PROGRESS NOTE DATE OF SERVICE: 01/03/2020 SUBJECTIVE: The patient's case was discussed with staff. He has no new complaint. OBJECTIVE: The patient is adamant that he is not going to take medication. He says he does not need any. He denies that he would seek to harm himself or others. He is pleasant, but again insists that he is not going to take the medications. ASSESSMENT: 1. Schizophrenia. 2. Dementia. PLAN: The patient is disorganized with paranoid beliefs and needs psychiatric medications. I will discuss this with him again tomorrow and we will encourage him to be medication compliant. TRANSINT:[id number] Voice Confirmation ID: [id number] DOCUMENT ID: [id number] MELISSA CAPPS MD at 1508 CC: [id number] DICTATION DATE: 01/03/20 1502 POWER ELECTRONICS ENGINEER: 01/03/20 2321 ADM IN [place] [id number] [place] [id number]
[2020-01-04 20:11] VITALS: BP 147/73
--- NOTE | 2020-01-04 20:30 | NUR ---
RECEIVED IN DAYROOM. SITTING IN A WHEELCHAIR WITH PEERS AT HIS SIDE. CALM AND COOPERATIVE WITH CARE AND ASSESSMENT. STATES HE WILL GIVE US A U/A WHEN HE CAN. NO SIGNS OF AGGRESSION OR PARANOIA. REDIRECT AND REORIENT NEEDED. CONTINUES TO SIT CALMLY IN DAYROOM. CONTINUE PLAN OF CARE.
--- NOTE | 2020-01-04 23:15 | NUR ---
PATIENT IS VERY COOPERATIVE WITH CARE TODAY. GAVE A URINE SAMPLE, TOOK A SHOWER, POLITE WITH STAFF AND PEERS AND TOOK ALL PO PM MEDS.
[2020-01-04 23:31] LABS: BACTERIA NONE SEEN /hpf (NEGATIVE); BILIRUBIN NEGATIVE (NEGATIVE); EPITHELIAL CELLS NSEEN /hpf (0-5); GLUCOSE NEGATIVE (NEGATIVE); KETONE NEGATIVE (NEGATIVE); NITRITE NEGATIVE (NEGATIVE); RED CELLS - URINE NONE SEEN /hpf (0-5); UROBILINOGEN NORMAL (NORMAL); WHITE CELLS - URINE 0-5 /hpf (NEGATIVE)
--- NOTE | 2020-01-05 06:54 | NUR ---
PATIENT REFUSED PROTONIX SUSP THIS AM.
[2020-01-05 08:13] LABS: CALC OSMOLALITY 267 mosm/kg (275-300); CALCIUM 9.5 mg/dL (8.5-10.1); CARBON DIOXIDE 29.6 mmol/L (21.0-32.0); CHLORIDE - SERUM 97 mmol/L (98-107); CREATININE - SERUM 0.9 mg/dL (0.6-1.3); POTASSIUM - SERUM 4.7 mmol/L (3.5-5.1); SODIUM 132 mmol/L (136-145); UREA NITROGEN 19 mg/dL (7-18); eGFR NON AFRICAN AMERICAN 89 mL/min (90-120)
[2020-01-05 08:14] LABS: GLUCOSE 119 mg/dL (74-106)
[2020-01-05 08:37] LABS: HEMATOCRIT 44.3 % (42.0-54.0); HEMOGLOBIN 14.9 g/dL (13.5-17.5); LYMPHOCYTES 20.6 % (15-50); MCH 31.6 pg (26.0-34.0); MCHC 33.6 g/dL (31.0-37.0); MCV 94.1 fL (80.0-100.0); MEAN PLATELET VOLUME 9.6 fL (7.4-10.4); NEUTROPHILS 72.4 % (40-80); PLATELET COUNT 247 10x3/uL (130-400); RBC 4.71 10x6/uL (4.20-6.10); RDW 13.3 % (11.5-14.5); WBC 13.2 10x3/uL (4.8-10.8)
[2020-01-05 10:20] VITALS: BP 143/75
--- NOTE | 2020-01-05 10:48 | NUR ---
Nutrition Follow-up: Diet: Diabetic Double Portions PO intake: ~88% average x last 9 meals Last BM: 01/04/20. Wt: 289# (12/31/19); Admit Wt: 289# (12/30/19) Meds noted: lasix, senokot, miralax, metformin Labs noted: Na 97(L), BUN 19(H), Glu 119(H) Recommend continue current diet. RD following.
--- NOTE | 2020-01-05 12:28 | NUR ---
The patient is awake and he is calm today. He refused to take his am meds, but then he agreed to take them. He asked the PT staff if he would work with him. He has not shown any aggression. He still has edematous legs. Explained to him that he needs to take his lasix and elevate his legs. Text Dr. Iniguez to ask her to unhold the po lasix and d/c the IM as the patient said he will be compliant with meds. Continue POC.
--- NOTE | 2020-01-05 16:23 | PN ---
PATIENT:POLA AN MEDICAL RECORD: [id number] LOCATION:[facility] ADMISSION DATE: 12/30/19 PROGRESS NOTE DATE OF SERVICE: 01/04/2020 SUBJECTIVE: The patient's case was discussed with staff. He has no new complaint. OBJECTIVE: The patient is refusing oral medications. He is doing so for reasons that are delusional. His feet and legs are badly swollen, but he refuses to take a diuretic. ASSESSMENT: Schizophrenia. PLAN: I am going to order a Haldol Decanoate shot for the patient. Hopefully, the antipsychotic medication will help him organize his thinking and become more compliant with treatment. TRANSINT:[id number] Voice Confirmation ID: [id number] DOCUMENT ID: [id number] MELISSA CAPPS MD at 1623 CC: [id number] DICTATION DATE: 01/04/20 1511 B2B SALES MANAGER: 01/04/20 2109 ADM IN [facility] [address] [id number]
--- NOTE | 2020-01-05 17:45 | NUR ---
pt is calm did refuse to make afternoon medications. reported to dr. torres. will speak with pt about refusal.
[2020-01-05 20:00] VITALS: BP 139/70
--- NOTE | 2020-01-05 20:49 | NUR ---
RECEIVED IN DAYROOM. SITTING QUIETLY TO HIMSELF. CALM AND COOPERATIVE WITH CARE AND ASSESSMENT. NO AGGRESSION. REDIRECT AND REORIENT NEEDED. SITTING IN GROUP AT THIS TIME. CONTINUE PLAN OF CARE.
[2020-01-06 10:11] VITALS: BP 129/70
--- NOTE | 2020-01-06 13:47 | NUR ---
TOOK MOST OF HIS MEDS THIS AM BUT REFUSED 3 OF HIS BP/HEART MEDS.ARGUMENTIVE WITH STAFF AT TIMES.PROPELLS SELF IN WHEELCHAIR.WILL CONTINUE WITH CURRENT PLAN OF CARE,MONITOR FOR CHANGES AND SAFETY.
--- NOTE | 2020-01-06 15:40 | NUR ---
NURSE ADMINSTERED NOW DOSE OF LASIX 20 MG IM PER DOCTOR ORDER. PT TOLERATED WELL. STAFF ENCOURAGES PT TO PROP FEET UP AND PT CONTS TO REFUSE TO PROP FEET UP. PT DID TAKE A.M. LASIX BUT IS INCONSISTANCE TAKING PO MEDICATIONS. STAFF CONTS TO ENCOURAGE TO TAKE MEDS. WILL CONT TO MONITOR.
--- NOTE | 2020-01-06 16:51 | PN ---
PATIENT:POLA AN MEDICAL RECORD: [id number] LOCATION:[facility] ADMISSION DATE: 12/30/19 PROGRESS NOTE DATE OF SERVICE: 01/05/2020 SUBJECTIVE: The patient's case was discussed with staff. He has no new complaint. OBJECTIVE: The patient was cooperative with medicines since yesterday. He did receive an injection of Geodon. He still is delusional. ASSESSMENT: Schizophrenia. PLAN: Current medicines have been reviewed and will be maintained. Long-term prognosis is guarded. NTS:[id number] Voice Confirmation ID: [id number] DOCUMENT ID: [id number] MELISSA CAPPS MD at 1651 CC: [id number] DICTATION DATE: 01/05/201657 STRUCTURAL DESIGN ENGINEER: 01/05/20 1902 ADM IN [facility] [address] [place] [address]
--- NOTE | 2020-01-06 18:08 | NUR ---
PT COMPLIANT WITH MEDS AT THIS TIME. WILL CONT TO MONITOR.
[2020-01-06 19:36] VITALS: BP 124/78
--- NOTE | 2020-01-07 01:45 | NUR ---
B) Patient is alert and oriented to person, place and time, difficult at times, baiting staff and verbally abusive at times, I) Administered scheduled medications as ordered, monitored for safety R) Medication compliant, P) Continue plan of care.
[2020-01-07 09:41] VITALS: BP 125/88
--- NOTE | 2020-01-07 11:21 | NUR ---
The patient self propels in a w/c. He is pleasant and has not tried to argue or become aggressive this am. He interacts well with staff and peers. He is participating in groups and activities. Provide prescribed meds. The patient is compliant with meds. Continue POC.
--- NOTE | 2020-01-07 13:12 | PN ---
PATIENT:POLA AN MEDICAL RECORD: [id number] LOCATION:[facility] ADMISSION DATE: 12/30/19 PROGRESS NOTE DATE OF SERVICE: 01/06/2020 SUBJECTIVE: The patient's case was discussed with staff. He has no new complaint. OBJECTIVE: The patient is in good behavioral control. He has limited insight about his situation. ASSESSMENT: Dementia. PLAN: Brief supportive and educational interventions were made. Long-term prognosis is guarded. He has been started on Geodon scheduled dose 20 mg at bedtime. TRANSINT:[id number] Voice Confirmation ID: [id number] DOCUMENT ID: [id number] MELISSA CAPPS MD at 1312 CC: [id number] DICTATION DATE: 01/06/20 180 REGIONAL FLATBED TRUCK DRIVER: 01/06/20 2100 ADM IN [facility] [address] [place] [address]
[2020-01-07 20:00] VITALS: BP 106/52
--- NOTE | 2020-01-07 21:54 | NUR ---
B.) PT IS ALERT AND ORIENTED X4. HE IS ARGUMENTATIVE WITH STAFF AND LABILE AT TIMES. HE IS OBSERVED SOCIALIZING WITH PEERS. HE USES A WHEELCHAIR TO ASSIST WITH AMBULATION. HE IS ABLE TO VOICE HIS NEEDS AND WANTS. I.) PROVIDED PM MEDICATIONS. REDIRECT NEEDED. R.) COMPLIANT AFTER BEING ARGUMENTATIVE WITH STAFF. DIFFICULT TO REDIRECT. P.) WILL CONTINUE TO MONITOR.
[2020-01-08 05:52] LABS: ANION GAP 10.3 mmol/L (8-16); CALCIUM 9.2 mg/dL (8.5-10.1); CARBON DIOXIDE 29.7 mmol/L (21.0-32.0); CREATININE - SERUM 1.1 mg/dL (0.6-1.3)
[2020-01-08 09:51] VITALS: BP 143/65
--- NOTE | 2020-01-08 10:12 | NUR ---
The patient is awake and alert and he is conversing with staff and his peers, he and another patient pray. He is calm and he has not shown any aggression today and so far this am he has not tried to argue with staff. Provide prescribed meds. The patient is compliant with meds. He is able to stand and transfer. He self propels in a w/c. Continue POC.
--- NOTE | 2020-01-08 16:20 | NUR ---
The patient requests to toilet, staff took him to his room and he then refused to come out of his room and he began preaching "[facility] is supposed to provide adequate and sanitary provisions." The patient has a clean bathroom, but he is now harping on the facilities being provided. A code mcduffie is called and he received ativan 0.5 mg IM in his left deltoid. Monitor. The patient did come out of his room, but the security expert came and escorted him to the day room.
--- NOTE | 2020-01-08 16:30 | NUR ---
Another patient's family was here visiting and this patient was saying in a loud terse manner "I need to go to the bathroom and I demand that you call the jn." Explained to him that "I am not speaking with him at this time." The patient is being rude and condescending. He said "I hope you go to hell." Told him that is not very nice. He said more derogative comments, but this nurse allowed him to vent on his own.
--- NOTE | 2020-01-08 17:00 | NUR ---
Aleshia Souza T took the patient to the bathroom and Aleshia assisted him to the toilet. He told Aleshia "I hope you eat sh-- and ." He is behaving in a beligerant manner. He is labile, earlier in the day he was friendly and telling staff "God Bless You." Now he is rude, terse, and argumentative.
--- NOTE | 2020-01-08 17:42 | NUR ---
The patient is sitting at the table and he is eating his dinner. He is talking and being a smart flaquita to staff, but he is conversing to the other patients in a calm manner.
--- NOTE | 2020-01-08 18:11 | NUR ---
The patient is trying to talk to this nurse and pick a fight and argue. Told him at this time I was not speaking with him because he wants to argue and we are not going to do that at this time.
[2020-01-08 20:00] VITALS: BP 142/73
--- NOTE | 2020-01-08 22:48 | NUR ---
B.) PT IS ALERT AND ORIENTED X4. HE IS ARGUMENTATIVE AND DEMANDING. HE IS RUDE AND INTRUSIVE WITH STAFF. HE IS SELF ABSORBED AT TIMES. HE USES A WHEELCHAIR TO ASSIST WITH AMBULATION. I.) PROVIDED PM MEDICATIONS PRESCRIBED. REDIRECT OFTEN. R.) COMPLIANT WITH MOST MEDICATIONS. DIFFICULT TO REDIRECT. P.) WILL CONTINUE TO MONITOR.
--- NOTE | 2020-01-08 23:23 | NUR ---
PT IS AGGITATED AND AGGRESSIVE WITH STAFF. HE IS DEMANDING AND INTRUSIVE WITH OTHER PTS CARE. HE STATES "GOD BLESS YOU BITCH." REDIRECT MANY TIMES. WILL CONTINUE TO MONITOR.
--- NOTE | 2020-01-09 08:20 | NUR ---
The patient is in a bad mood. He is attempting to interrupt staff during report. He is making snide remarks. Since staff ignored his remarks he chose to go back to his room, he closed his door, and sat in front of it and barricaded it. Greg Ramsay T attempted to open the door, but he has it blocked. He refused to open the door and come out. Staff called a code mcduffie. The physical security engineer came and Cherelle Chaparro RN are at the door slowly prying the door open so that he is being backed away. After opening it a small bit the physical security engineer got in the room and retrieved the patient. The patient is telling the physical security engineer to arrest him and read him his rights. He is being derogatory with his comments and berating the nurses for hurting a poor innocent patient and how the nurse should use the silent night and take their own meds. He is nonsensical and delusional. Provided Alisa THEODORE in his left deltoid. Monitor his mood and behavior.
--- NOTE | 2020-01-09 09:44 | NUR ---
The patient refused his am medication, vital signs, and refuses to elevate his legs. They are red and edematous. He took his socks off and will not keep foot coverings on his feet. He wants to argue and be condescending.
--- NOTE | 2020-01-09 10:37 | NUR ---
The patient politely asked for a cup of iced water. Provided him a cup. He asked for a chair to put his feet up. Staff offered him the rubina chair, he went over to the rubina chair and instead of sitting it it he propped his feet up in the chair. He is reading the Bible, but he is falling asleep.
--- NOTE | 2020-01-09 12:37 | NUR ---
The patient has been badgering staff and trying to manipulate to get them to argue and fight with him, he will even self propel himself closer to taunt and pick at the staff. He is using derogatory language and being inappropriate. Calling [facility] a "Nigger" Requested the director information security to come in case the patient fights. Provided the patient Ativan 0.5 mg IM in his right deltoid. The patient tolerated it without a fight.
--- NOTE | 2020-01-09 13:03 | NUR ---
The patient continues to be derogatory and say mean disrespectful things to staff. He is attention seeking and manipulative. He keeps telling the other patient's "They keep giving me shot after shot after shot."
--- NOTE | 2020-01-09 13:30 | NUR ---
The patient tried to to talk to this nurse. He said "Sha, do you know why I blocked the door this morning?" Looked at him and said "No" He said "Well, you don't care and you're uninterested." Let the patient roll away. Not debating with the patient. He continues to make threats that he is going to take the nurses to court and they will lose their licenses.
--- NOTE | 2020-01-09 15:26 | NUR ---
The patient continues to be rude to staff. He tries to insult them and provoke a fight or an argument. He spoke to Dr. Iniguez about why he got so angry and she told him he was being unreasonable. He would not listen. He takes a fraction of the truth and blows it out of proportion. He listens to all conversations and he makes remarks.
[2020-01-09 19:19] VITALS: BP 168/86
--- NOTE | 2020-01-09 20:04 | NUR ---
RECEIVED IN DAYROOM AREA. SITTING IN A CHAIR WITH PEERS AT HIS SIDE. CALM AND COOPERATIVE WITH CARE AND ASSESSMENT. NO SIGNS OF AGGRESSION. REDIRECT AND REORIENT NEEDED. SITTING IN DINING ROOM AREA WITH PEERS AT THIS TIME. CONTINUE PLAN OF CARE.
--- NOTE | 2020-01-09 20:40 | NUR ---
ENCOURAGED TO TAKE MEDS BUT REFUSED ALL PM MEDS.
--- NOTE | 2020-01-10 01:20 | NUR ---
VERBALLY ABUSIVE WITH STAFF. REFUSES TO COOPERATE WITH CARE AND DIRECTIONS. BECOMES AGGRESSIVE WITH STAFF.
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
--- NOTE | 2020-01-10 06:55 | NUR ---
IN ROOM RESTING QUIETLY ON THE FLOOR.
--- NOTE | 2020-01-10 07:45 | NUR ---
PT IS AWAKE AND ALERT. CALM AND COOPERATIVE WITH ASSESSMENT. PT TOOK AM THIS THIS SHIFT. PT HAS MADE SI STATEMENTS THIS SHIFT. PT PRESENT WITH STAFF AT ALL TIMES FOR SAFETY. PRESCRIBED MEDS PROVIDED ORDERED. REDIRECT AND REORIENT NEEDED. FALL PRECAUTIONS IN PLACE. WILL CPOC.
[2020-01-10 10:09] VITALS: BP 163/83
[2020-01-10 11:57] LABS: BASOPHILS 0.2 % (0-2); EOSINOPHILS 0.8 % (0-7); HEMATOCRIT 44.2 % (42.0-54.0); HEMOGLOBIN 14.6 g/dL (13.5-17.5); IMMATURE GRANULOCYTES 0.5 % (0-5); LYMPHOCYTES 11.4 % (15-50); MCH 31.4 pg (26.0-34.0); MCV 95.1 fL (80.0-100.0); MEAN PLATELET VOLUME 9.6 fL (7.4-10.4); MONOCYTES 4.9 % (2-11); NEUTROPHILS 82.2 % (40-80); PLATELET COUNT 243 10x3/uL (130-400); RBC 4.65 10x6/uL (4.20-6.10); WBC 13.3 10x3/uL (4.8-10.8)
[2020-01-10 12:03] LABS: ANION GAP 10.6 mmol/L (8-16); CALCIUM 9.1 mg/dL (8.5-10.1); CARBON DIOXIDE 29.3 mmol/L (21.0-32.0); CREATININE - SERUM 1.1 mg/dL (0.6-1.3); POTASSIUM - SERUM 3.9 mmol/L (3.5-5.1)
--- NOTE | 2020-01-10 20:01 | NUR ---
RECEIVED IN HALLWAY TO DINING ROOM. SITTING IN A WHEELCHAIR. NEGATIVE STATEMENTS ABOUT STAFF VOICED. REFUSED VITALS. NO SIGNS OF AGGRESSION AT THIS TIME. REDIRECT AND REOREINT NEEDED. MOVING AROUND DAY AREA IN WHEELCHAIR AT THIS TIME. CONTINUE PLAN OF CARE.
[2020-01-11 09:46] VITALS: BP 139/75
--- NOTE | 2020-01-11 12:22 | NUR ---
PT SITTING IN W/C WITH PEERS IN DAYROOM. ASSESSMENT COMPLETED. PRESCRIBED MEDS PROVIDED. MEDS REFUSED X 3. PT IS AGITATED WITH STAFF AND PEERS AT THIS TIME. REDIRECT AND REORIENT NEEDED. PT IS DEMANDING TO STAFF. FALL PRECAUTIONS IN PLACE. WILL CPOC.
--- NOTE | 2020-01-11 13:48 | NUR ---
PATIENT IS VERBALLY ABUSIVE WITH STAFF. URINATED IN FLOOR, THEN ACTED LIKE HE URINATED IN THE FLOOR TWO MORE TIMES BUT IT WAS ACTUALLY COOL WATER. HE CONTINUES TO BE VERBALLY ABUSIVE WITH STAFF. EVEN TO THE POINT OF TELLING A NURSE THAT HE HOPES HER BABY DIES. MULTIPLE STATEMENTS CONCERNING HER BABY DYING BEING MADE.
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
--- NOTE | 2020-01-11 16:37 | PN ---
PATIENT:POLA AN MEDICAL RECORD: [id number] LOCATION:[facility] ADMISSION DATE: 12/30/19 PROGRESS NOTE DATE OF SERVICE: 01/10/2020 SUBJECTIVE: The patient's case was discussed with staff. He has no new complaint. OBJECTIVE: The patient has not been taking his medicines. He has been agitated and has required p.r.n. medication for that agitation. He cannot give me an explanation that is meaningful as to why he will not take his medicines. I have discussed with him the general principle that were just simply trying to help him both emotionally and physically and he was accepting of this and said that he would take his medications. A little while after I spoke with him, he told the nurse that he was going to have to kill himself because his medicines were never going to work. ASSESSMENT: No change in diagnoses. PLAN: Current medicines and therapies have been reviewed. It is difficult to adjust medications in some one who will not take them most of the time. I think the best effort at this point can be to try to convince the patient to take medications as prescribed. TRANSINT:[id number] Voice Confirmation ID: [id number] DOCUMENT ID: [id number] MELISSA CAPPS MD at 1637 CC: [id number] DICTATION DATE: 01/10/20 1749 SIGN ERECTOR: 01/10/202120 ADM IN [facility] [address] [place] [address]
[2020-01-11 20:01] VITALS: BP 137/63
--- NOTE | 2020-01-12 02:52 | NUR ---
B) Patient is alert and oriented to person and place, rude and argumentive followed by 'I'm sorry ' and attempts at staff spliting, I) Administered scheduled medications as ordered, redirected as needed, R) Partially medication compliant, would not take his clonipine, statin, or blood pressure medications at HS, his reason for not taking his medications appears to his way of controlling and not for medical reasons. P) Continue plan of care.
[2020-01-12 07:52] VITALS: BP 137/69
--- NOTE | 2020-01-12 10:13 | NUR ---
The patient refused his Lasix injection. He did however take all his po am meds, but d/t his low bp held his bp meds.
--- NOTE | 2020-01-12 10:23 | NUR ---
The patient is awake and he is alert, he is being more polite at this time. He is calm and he has not been mean. He is in a w/c and his legs are red and edematous. Provide prescribed meds. The patient is compliant with meds today. Monitor for his labile mood and behavior. Continue POC.
--- NOTE | 2020-01-12 12:43 | PN ---
PATIENT:POLA AN MEDICAL RECORD: [id number] LOCATION:[facility] ADMISSION DATE: 12/30/19 PROGRESS NOTE DATE OF SERVICE: 01/11/2020 SUBJECTIVE: The patient's case was discussed with staff. He has no new complaint. OBJECTIVE: The patient denies intent to harm himself or others. He is delusional and not compliant with medications today. ASSESSMENT: 1. Dementia. 2. Schizophrenia. PLAN: Supportive and educational interventions were made. The patient's situation is very serious. He is in need of medications, not just for mental health, but for diabetes and he has a high or significant amount of pedal edema. TRANSINT:[id number] Voice Confirmation ID: [id number] DOCUMENT ID: [id number] MELISSA CAPPS MD at 1243 CC: [id number] DICTATION DATE: 01/11/20 1642 ORGAN PIPE VOICER: 01/11/20 2339 ADM IN [place] [id number] [place] [id number]
--- NOTE | 2020-01-12 13:40 | NUR ---
Nutrition Follow-up: Diet: Diabetic Double Portions PO intake: ~92% average x last 9 meals Last BM: 01/12/20. WT: 291# (01/09/20); Admit Wt: 289# (12/30/19) Meds noted: lasix, senokot, miralax, metformin. Labs noted: POC Glu 235(H) Recommend continue current diet. RD following.
--- NOTE | 2020-01-12 19:30 | NUR ---
B.) PT IS ALERT AND ORIENTED TO X4. HE IS WITHDRAWN AND SELF ISOLATED TODAY. HE REMAINS IN THE DINING AREA. HE REFUSES TO JOIN THE OTHER PTS. HE IS ABLE TO MAKE HIS NEEDS KNOWN AND IS DEMANDING WITH STAFF AT TIMES. I.) PROVIDED PM MEDICATIONS PRESCRIBED. REDIRECT NEEDED. R.) NON-COMPLIANT WITH ALL MEDICATIONS. DIFFICULT TO REDIRECT. P.) WILL CONTINUE TO MONITOR.
[2020-01-12 20:33] VITALS: BP 148/77
--- NOTE | 2020-01-12 21:42 | NUR ---
PT IS PACING THE HALLS. HE IS RUDE AND DEMANDING WITH STAFF. HE IS THREATENING TO BECOME PHYSICALLY AGGRESSIVE WITH STAFF MEMBERS. IMPOSSIBLE TO REDIRECT. ADMINISTERED IM ATIVAN 0.5MG. WILL CONTINUE TO MONITOR.
--- NOTE | 2020-01-12 23:12 | NUR ---
PT IS RESTING CALMLY IN HIS WHEELCHAIR IN HIS ROOM. NO DISTRESS NOTED. WILL CONTINUE TO MONITOR.
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
--- NOTE | 2020-01-13 10:00 | NUR ---
The patient has not settled he is trying to watch TV in the other room, it was fine until he turned the volume up. Took the remote control away from him.
--- NOTE | 2020-01-13 10:40 | NUR ---
The patient went into the bathroom and staff are checking on him, he has fallen asleep on the toilet. Will monitor.
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
--- NOTE | 2020-01-13 15:23 | NUR ---
The patient is sitting in the go or the bathroom and anytime anyone walks by he curses them out. He refuses to take his medication. He doesn't want to listen and he has a snide, rude comment for everyone.
--- NOTE | 2020-01-13 16:37 | NUR ---
The patient refuses his medications, he continues to be rude and tries to push buttons.
--- NOTE | 2020-01-13 17:30 | NUR ---
The patient said during dinner. "I don't want any food, I never want to eat again." This nurse filled his menus out anyway for Friday and Friday.
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
[2020-01-13 20:06] VITALS: BP 157/82
--- NOTE | 2020-01-14 01:16 | NUR ---
B) Patient is alert and oriented to person and place, rude to staff, refusing all medications, stated several time " god bless you, your all going to hell" I) Offered HS medications, redirected as needed, R) Refused all medications, sullen and disrespectful aditude toward staff and other patients, self isolating. P) Continue plan of care.
--- NOTE | 2020-01-14 09:23 | NUR ---
Offered the patient his am medication. He adamantly refused. Due to the fact that he is irritable, and condescending to staff and other patients, crushed his po prolixin in his diet coke. At first he said he was not going to eat or drink, but he drank his diet coke and he ate his breakfast. Staff and the Dr. have explained to him that he needs the medication d/t the edema in his bilateral feet and legs. Also explained to him that he has elevated WBC's and he has an infection. The patient says "So, what carry me to the morgue." The patient is psychotic and he is grandiose in the belief that he is highly intelligent and everyone else is stupid. Continue to monitor his mood and behavior. Continue POC.
--- NOTE | 2020-01-14 12:43 | PN ---
PATIENT:POLA AN MEDICAL RECORD: [id number] LOCATION:[facility] ADMISSION DATE: 12/30/19 PROGRESS NOTE DATE OF SERVICE: 01/13/2020 SUBJECTIVE: The patient's case was discussed with staff. He has no new complaint. OBJECTIVE: The patient is very delusional. He is angry with staff. He has been aggressive and threatening with staff. He is paranoid and delusional. He is noncompliant with medications. ASSESSMENT: 1. Dementia. 2. Schizophrenia. PLAN: The patient's current medications will be changed. I am going to stop the scheduled Geodon and give him scheduled doses of Prolixin. I am going to increase his Geodon injection that is p.r.n. to 20 mg on an as needed basis. He is a potentially dangerous man and his medication noncompliance is problematic from a treatment standpoint. TRANSINT:[id number] Voice Confirmation ID: [id number] DOCUMENT ID: [id number] MELISSA CAPPS MD at 1243 CC: [id number] DICTATION DATE: 01/13/20 1353 DIRECTOR FUNERAL: 01/13/20 1714 ADM IN [facility] [address] [place] [id number]
--- NOTE | 2020-01-14 15:20 | NUR ---
The patient refuses his 1500 po prolixin.
[2020-01-14 20:10] VITALS: BP 148/90
--- NOTE | 2020-01-15 02:07 | NUR ---
B) RECEIVED IN DINING ROOM, SOCIALIZING WITH PEERS AND STAFF. ALERT AND ORIENTED TO PERSON AND PLACE. I) ADMINISTERED PM MEDICATIONS. REDIRECTED NEEDED, R) COMPLIANT WITH TAKING ALL MEDICATIONS. MONITOR FOR SAFETY AND BEHAVIORS. P) CONTINUE POC.
[2020-01-15 09:30] VITALS: BP 154/83
--- NOTE | 2020-01-15 10:40 | NUR ---
RECEIVED THIS AM UP IN WHEELCHAIR.ATTENTION SEEKING.REFUSES MEDS FROM THIS NURSE THEN LATER CALLS OUT TO THIS NURSE THAT HE WILL TAKE ANY MEDS I HAVE FOR HIM.MEDS TAKEN WITHOUT DIFFICULTY.RESTLESS,PROPELLS SELF ABOUT UNIT.WILL CONTINUE WITH CURRENT PLAN OF CARE,MONITOR FOR CHANGES AND SAFETY.
--- NOTE | 2020-01-15 13:50 | NUR ---
pt requested cream for the red areas on his face. nurse stated that medication was not ordered due to pt refusal of treatment. and that nurse would have to contact doctor for a order. pt became agitated and stated "you have my cream in your hand." nurse explained that medication was for another pt and we would have to order pt his own cream. did not verbalize understanding.
--- NOTE | 2020-01-15 14:30 | NUR ---
GEODON 20MG IM GIVEN TO LEFT DELTOID DUE TO THREATENING KARIN XIE .THREATENED TO POOP AND STUFF IT DOWN HER THROAT WHEN CONFRONTED ABOUT STOOL FOUND ON FLOOR.
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
--- NOTE | 2020-01-15 14:51 | NUR ---
pt refused 1500 medication prolixin 5 mg. will cont to monitor pts behavior.
--- NOTE | 2020-01-15 15:00 | NUR ---
GOOD RESPONSE TO GEODON.
[2020-01-15 17:20] LABS: BASOPHILS 0.4 % (0-2); EOSINOPHILS 3.1 % (0-7); HEMATOCRIT 44.2 % (42.0-54.0); HEMOGLOBIN 14.8 g/dL (13.5-17.5); IMMATURE GRANULOCYTES 1.5 % (0-5); LYMPHOCYTES 20.2 % (15-50); MCH 31.7 pg (26.0-34.0); MCHC 33.5 g/dL (31.0-37.0); MCV 94.6 fL (80.0-100.0); MEAN PLATELET VOLUME 9.4 fL (7.4-10.4); MONOCYTES 8.7 % (2-11); NEUTROPHILS 66.1 % (40-80); PLATELET COUNT 261 10x3/uL (130-400); RBC 4.67 10x6/uL (4.20-6.10); RDW 12.9 % (11.5-14.5); WBC 10.6 10x3/uL (4.8-10.8)
[2020-01-15 17:43] LABS: ALBUMIN 3.7 g/dL (3.4-5.0); ANION GAP 8.9 mmol/L (8-16); BILIRUBIN - TOTAL 0.35 mg/dL (0.2-1.3); CARBON DIOXIDE 29.4 mmol/L (21.0-32.0); CREATININE - SERUM 1.1 mg/dL (0.6-1.3); POTASSIUM - SERUM 4.3 mmol/L (3.5-5.1); PROTEIN - SERUM 7.7 g/dL (6.4-8.2)
[2020-01-15 19:16] VITALS: BP 166/84
--- NOTE | 2020-01-15 21:00 | NUR ---
B.) PT IS ALERT AND ORIENTED X4. HE IS CALM AND COOPERATIVE WITH STAFF. HE IS RECEIVED IN THE DAYROOM IN HIS WHEELCHAIR. HE IS ABLE TO VOICE NEEDS AND WANTS. I.) PROVIDED PM MEDICATIONS PRESCRIBED. REDIRECT NEEDED. R.) COMPLIANT WITH ALL MEDICATIONS. EASY TO REDIRECT. P.) WILL CONTINUE TO MONITOR.
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
--- NOTE | 2020-01-16 06:22 | NUR ---
PT IN BED WITH EYES CLOSED. NO DISTRESS NOTED. WILL CONTINUE TO MONITOR.
--- NOTE | 2020-01-16 09:00 | NUR ---
REC'D PT IN DINING ROOM. ASSESSMENT COMPLETED AT THIS TIME. PT REFUSED HIS AM MEDS X 3. REDIRECT AND REORIENT NEEDED. PT IS QUIET AT THIS TIME. PT CONTINUES TO REFUSE MEDS. STATES " I DO NOT WANT THEM." FALL PRECAUTIONS IN PLACE. WILL CPOC.
[2020-01-16 09:47] VITALS: BP 140/70
--- NOTE | 2020-01-16 20:10 | NUR ---
RECEIVED IN DINING ROOM AREA. CALM AND COOPERATIVE WITH CARE AND ASSESSMENT. NO SIGNS OF AGGRESSION. NO SIGNS OF PARANOIA. REDIRECT AND REOREINT NEEDED. IN DAYROOM WATCH TV AT THIS TIME. CONTINUES TO SIT CALMLY. CONTINUE PLAN OF CARE.
[2020-01-16 20:14] VITALS: BP 186/90
[2020-01-17 09:19] VITALS: BP 181/83
--- NOTE | 2020-01-17 12:00 | NUR ---
RECEIVED IN HALLWAY OUTSIDE OF NURSES STATION. CALM AND COOPERATIVE WITH CARE AND ASSESSMENT. BUT LATER BECAME AGITATED AND REFUSED MEDICATIONS. YELLING AND CURSING AT STAFF. REDIRECT AND REORIENT NEEDED. EATING AT THIS TIME. CONTINUE PLAN OF CARE.
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
--- NOTE | 2020-01-18 08:00 | NUR ---
PT IS AWAKE AND ORIENTED X 3. ASSESSMENT COMPLETED. PRESCRIBED MEDS ORDERED. PT REFUSED MEDS X 3. REDIRECT AND REORIENT NEEDED. FALL PRECAUTIONS IN PLACE. WILL CPOC.
--- NOTE | 2020-01-18 10:02 | PN ---
PATIENT:POLA AN MEDICAL RECORD: [id number] LOCATION:[facility] ADMISSION DATE: 12/30/19 PROGRESS NOTE DATE OF SERVICE: 01/17/2020 SUBJECTIVE: The patient's case was discussed with staff. He has no new complaint. OBJECTIVE: The patient is intermittently compliant with medications, which is better than a week ago when he was flatly noncompliant. Unfortunately, today he is angry, delusional and will not speak to me and uses some vulgar language to express. With regard to his behaviors on the unit, they have been disruptive, but not to a level that have required p.r.n. medication. He is eating well. He is sleeping adequately, but he is not consistently taking his medications and his lower extremities are badly edematous. He will not keep his feet propped up. He will not take Lasix and I suspect he is probably going to develop a cellulitis soon. TRANSINT:[id number] Voice Confirmation ID: [id number] DOCUMENT ID: [id number] MELISSA CAPPS MD at 1002 CC: [id number] DICTATION DATE: 01/17/20 1646 CAR SALTER: 01/18/20 0012 ADM IN [place] [id number] [place] [address]
[2020-01-18 10:11] VITALS: BP 137/84
[2020-01-18 20:53] VITALS: BP 119/61
--- NOTE | 2020-01-18 21:55 | NUR ---
RECEIVED IN DINING ROOM AREA. SITTING BY HIMSELF. CALM AND COOPERATIVE WITH CARE AND ASSESSMENT. NO SIGNS OF AGGRESSION. REDIRECT AND REOREINT NEEDED. CONTINUES TO KEEP TO HIMSELF. CONTINUE PLAN OF CARE.
[2020-01-19 09:40] LABS: CALC OSMOLALITY 263 mosm/kg (275-300); CALCIUM 9.1 mg/dL (8.5-10.1); CARBON DIOXIDE 29.3 mmol/L (21.0-32.0); CHLORIDE - SERUM 93 mmol/L (98-107); CREATININE - SERUM 0.8 mg/dL (0.6-1.3); GLUCOSE 142 mg/dL (74-106); POTASSIUM - SERUM 4.5 mmol/L (3.5-5.1); SODIUM 129 mmol/L (136-145); UREA NITROGEN 22 mg/dL (7-18); eGFR NON AFRICAN AMERICAN > 90 mL/min (90-120)
--- NOTE | 2020-01-19 10:33 | NUR ---
this a.m. pt would not respond to staff members when went into pt's room to assist with getting up for breakfast. pt was staring into the ceiling. staff had to call a code muscle in order to assist with pt getting up. pt non-compliant with PO meds. pt did recieve IM lasix. pt tolerated well. pt is talking to peers but sitting in a chair with eyes open. no other behaviors noted at this time. chair alarm in place and active. will cont to monitor.
--- NOTE | 2020-01-19 11:13 | NUR ---
Nutrition Follow-up: Diet: Diabetic Double Portions PO intake: 100% Last BM: 01/16/20. Wt: 290# (01/16/20); Admit wt: 289# (12/30/19) Meds noted: lasix, senokot, miralax, MagOx, metformin Labs noted: Na 129(L), BUN 22(H), Glu 142(H) Noted in MD notes that patient has requested less food and states that he is getting too much. Will discontinue double portions for now. Recommend continue diabetic diet. RD following.
--- NOTE | 2020-01-19 13:27 | PN ---
PATIENT:POLA AN MEDICAL RECORD: [id number] LOCATION:[facility] ADMISSION DATE: 12/30/19 PROGRESS NOTE DATE OF SERVICE: 01/18/2020 SUBJECTIVE: The patient's case was discussed with staff. He has no new complaint. OBJECTIVE: The patient continues to be disorganized and delusional. Today, he wants me to tell him what his middle name is and I do not know and so he says that "I am not taking a proper interest in his case because I do not know the middle name and he will not speak to me. ASSESSMENT: 1. Dementia. 2. Schizophrenia. PLAN: The patient's case has been discussed with nursing staff and discharge planning. He has very poor insight about his situation and is still delusional. I am going to give him another Prolixin Decanoate shot as the first one as had little or no effect. TRANSINT:[id number] Voice Confirmation ID: [id number] DOCUMENT ID: [id number] MELISSA CAPPS MD at 1327 CC: [id number] DICTATION DATE: 01/18/20 1600 BAG HANGER: 01/18/20 2319 ADM IN [facility] [address] [place] [id number]
--- NOTE | 2020-01-19 17:12 | NUR ---
PT REFUSED TO DO ADLS AT ALL THIS SHIFT. PT WILL NOT DO TOILETING AT ALL. PT REFUSED TO ASSIST. PT REFUSED TO ALLOW MHT TO ASSIST WITH TOILETING. STAFF ATTEMPTED TO REDIRECT BEHAVIOR. UNABLE TO DO SO AT THIS TIME.
--- NOTE | 2020-01-19 18:26 | NUR ---
PT CONTS TO REFUSE TO ALLOW STAFF TO CHANGE PT. PT CAN BE AGGRESSIVE AT TIMES WTIH STAFF.ATTEMPTED TO REDIRECT PTS BEHAVIOR. UNABLE TO DO SO.
[2020-01-19 20:00] VITALS: BP 144/75
--- NOTE | 2020-01-19 22:00 | NUR ---
RECEIVED IN DAY ROOM SITTTING IN RECLINER WITH LEGS ELEVATED. CALM AND COOPERATIVE WITH STAFF AND ASSESSMENT. NO BEHAVIORS TONIGHT. ADMINISTERED SCHEDULED MEDICATIONS. COMPLIANT WITH TAKING MEDICATIONS. REDIRECT NEEDED. CONTINUE PLAN OF CARE.
--- NOTE | 2020-01-19 22:30 | NUR ---
CONVINCED PATIENT TO TAKE A SHOWER BEFORE GOING TO BED. AFTERWARDS A SANDWICH TRAY WAS GIVEN TO PATIENT.
[2020-01-20 09:40] VITALS: BP 140/85
--- NOTE | 2020-01-20 14:39 | PN ---
PATIENT:POLA AN MEDICAL RECORD: [id number] LOCATION:[facility] ADMISSION DATE: 12/30/19 PROGRESS NOTE DATE OF SERVICE: 01/19/2020 SUBJECTIVE: The patient's case was discussed with staff. He has no new complaint. OBJECTIVE: The patient denies intent to harm himself or others. He is tolerating his medicines well. He is still psychotic and delusional, but did have his Prolixin Decanoate shot yesterday. ASSESSMENT: 1. Dementia. 2. Schizophrenia. PLAN: Current medicines have been reviewed and will be maintained. Long-term prognosis is guarded. TRANSINT:[id number] Voice Confirmation ID: [id number] DOCUMENT ID: [id number] MELISSA CAPPS MD at 1439 CC: [id number] DICTATION DATE: 01/19/20 1617 FACILITIES MAINTENANCE SUPERVISOR: 01/20/20 0047 ADM IN [facility] [address] [place] [address]
--- NOTE | 2020-01-20 15:59 | NUR ---
PT C/O OF GREAT RIGHT TOE. BLOOD NOTED UNDER NAIL AND NAIL APPEARS TO BE RASIED A BIT PT CONTS TO RAISE TOENAIL FROM BED STATING THAT HE DOES NOT WANT TO GET STAPH IN HIS NAIL BED. REDIRECT PT FROM NOT RAISING AND TOUCHING TOENAIL. SEVERAL TIMES REDIRECTED. NURSE CLEANED AREA WITH WOUND CLEANSER, 4X4 APPLIED TO AREA AND WRAPPED WITH GAUZE. NURSE EDUCATED PT TO NOT TOUCH DRESSING AND ELEVATE FEET TO ASSIST WITH SWELLING NOTED TO BILATERAL LEGS. CONSULT FOR PODIATRY ORDERED AND CALLED TO SET IN HOUSE APPT. FRIDAY FOR DOCTOR TO EVAL NAIL.
[2020-01-20 20:04] VITALS: BP 194/78
--- NOTE | 2020-01-20 22:50 | NUR ---
B.) PT IS ALERT AND ORIENTED TO SELF, PLACE AND SITUATION. HE IS ABLE TO AMBULATE WITH WHEELCHAIR. HE IS OBSERVED SOCIALIZING WITH PEERS. HE IS CALM AND COOPERATIVE. I.) PROVIDED PM MEDICATIONS PRESCRIBED. REDIRECT NEEDED. R.) COMPLIANT WITH ALL MEDICATIONS. EASY TO REDIRECT THIS EVENING. P.) WILL CONTINUE TO MONITOR.
[2020-01-21 06:49] LABS: BASOPHILS 0.2 % (0-2); EOSINOPHILS 3.9 % (0-7); HEMATOCRIT 40.1 % (42.0-54.0); HEMOGLOBIN 13.6 g/dL (13.5-17.5); IMMATURE GRANULOCYTES 0.8 % (0-5); LYMPHOCYTES 17.6 % (15-50); MCH 31.2 pg (26.0-34.0); MCHC 33.9 g/dL (31.0-37.0); MEAN PLATELET VOLUME 9.6 fL (7.4-10.4); MONOCYTES 7.4 % (2-11); NEUTROPHILS 70.1 % (40-80); PLATELET COUNT 295 10x3/uL (130-400); RBC 4.36 10x6/uL (4.20-6.10); RDW 12.4 % (11.5-14.5); WBC 11.4 10x3/uL (4.8-10.8)
[2020-01-21 07:02] LABS: CALC OSMOLALITY 254 mosm/kg (275-300); CARBON DIOXIDE 26.6 mmol/L (21.0-32.0); CHLORIDE - SERUM 90 mmol/L (98-107); CREATININE - SERUM 0.8 mg/dL (0.6-1.3); GLUCOSE 157 mg/dL (74-106); POTASSIUM - SERUM 4.2 mmol/L (3.5-5.1); SODIUM 124 mmol/L (136-145); UREA NITROGEN 17 mg/dL (7-18); eGFR NON AFRICAN AMERICAN > 90 mL/min (90-120)
[2020-01-21 09:22] VITALS: BP 152/74
--- NOTE | 2020-01-21 10:33 | PN ---
PATIENT:POLA AN MEDICAL RECORD: [id number] LOCATION:[facility] ADMISSION DATE: 12/30/19 PROGRESS NOTE DATE OF SERVICE: 01/20/2020 SUBJECTIVE: The patient's case was discussed with staff. He has no new complaint. OBJECTIVE: The patient is much calmer and appropriate that he has previously been. I attribute this to the antipsychotic effects of the Prolixin decanoate that he has been given. He is not sleeping well. I am going to reduce the scheduled Prolixin slightly and concentrated just at bedtime. TRANSINT:[id number] Voice Confirmation ID: [id number] DOCUMENT ID: [id number] MELISSA CAPPS MD at 1033 CC: [id number] DICTATION DATE: 01/20/20 1450 WIRE WINDING MACHINE OPERATOR: 01/20/20 2206 ADM IN [place] [id number] [place] [id number]
--- NOTE | 2020-01-21 11:02 | NUR ---
The patient is more calm today, although, he is confused or delusional as he believes today is the and he says Friday will be the . The patient is not redirectable. Showed him the calendar and the cell phone, but he wanted to argue. Let him know that I was not arguing he did not get agitated. He just simply said "No, look at the calendar." He remains incorrect as the calendar is correct. He is in a w/c and he self propels. Provide prescribed meds. The patient is compliant with meds today. He says he would like this nurse to weigh him as he feels like he has gained a lot of weight. Told him I'd take him in a little bit. He said "God Bless you Sha." Continue POC.
--- NOTE | 2020-01-21 15:54 | NUR ---
NURSE CLEANED PT TOE WITH WOUND CLEANSER AND WRAPPED WITH GAUZE DUE TO GREAT RIGHT TOE DAMAGE.
--- NOTE | 2020-01-21 18:35 | NUR ---
Dr. Iniguez explained to the patient that his sodium is low and she would like him to drink less water and she wants to start a 3% sodium IV on him. He is getting anxious about it. He requested an anxiety shot. Provided ativan 0.5 mg IM in his left deltoid.
[2020-01-21 20:10] VITALS: BP 115/64
--- NOTE | 2020-01-21 21:59 | NUR ---
B.) PT IS ALERT AND ORIENTED TO SELF AND PLACE. HE IS RECEIVED IN THE DAYROOM SOCIALIZING WITH STAFF. HE RELATES THAT HE IS ANXIOUS ABOUT THE IV AND FLUIDS RUNNING THROUGHT THE NIGHT. HE STATES "IF IT COMES OUT IN THE NIGHT I REFUSE TO LET YOU START ANOTHER IV." I.) PLACED IV IN LEFT AC. PROVIDED PM MEDICATIONS. REDIRECT OFTEN. R.) COMPLIANT WITH IV PLACEMENT AND PM MEDICATIONS. DIFFICULT TO REDIRECT. P.) WILL CONTINUE TO MONITOR.
--- NOTE | 2020-01-22 08:05 | NUR ---
The patient requests that the IV fluids be stopped. Stopped them while he eats breakfast. Left the IV catheter in his left AC. He is sleepy this am and he is slow moving, telling all staff he loves them and that they are beautiful and "God bless you." His legs remain edematous and red. He says he feels worse than he ever did. Provide prescribed meds. The patient is compliant with meds. He self propels in a w/c. Continue POC.
--- NOTE | 2020-01-22 09:05 | NUR ---
PT REFUSED IM LASXIX STATING "I HAVE LOW SODIUM. DONT YOU KNOW HOW LOW SODIUM WORKS?" IM LASIX NOT ADMINISTERED AT THIS TIME.
--- NOTE | 2020-01-22 09:50 | NUR ---
Dr. Chanel is here to clip patient's toenails. The patient is tolerating well.
--- NOTE | 2020-01-22 10:00 | NUR ---
The patient is attention seeking. He keeps calling my name and asks many questions or tells stories. He tries to manipulate staff and staff split.
--- NOTE | 2020-01-22 10:06 | NUR ---
dr. capellan came to eval pt feet at this time. pt became argumentive with doctor and had to have several times of encouragement from the staff to allow dr. capellan to complete removing the toe nail he was consulted for at this time. pt stated that his toe was infected and that the doctor did not know what he was talking about." pt cont to snatch his feet from the doctor stating "he called him 2 weeks ago for an appt and how long ago was that doctor? how long ago was that doctor?" nurse attempted to redirect pts behavior. pt was extremely agitated and argumentive. 3x staff members attempt to redirect pts behavior.pt cont to argue with doctor about labs. doctor did not argue with pt. staff was able to redirect some of pts behavior.
--- NOTE | 2020-01-22 10:26 | NUR ---
The patient asked if he could have his IV, restarted it after flushing the IV line with saline. The IV flushed well, he kept crossing his arms and occluding it. So he asked me to stop it. So this nurse stopped it and left the IV cath intact. He is angry and pissed about his toenail being removed. Within minutes he was begging this nurse to restart the IV. Explained to him that he is angry and that he needs time to chill out and decompress. He is still continuing to curse the Dr. under his breath.
--- NOTE | 2020-01-22 10:47 | NUR ---
The patient continues to request for the IV to be restarted. He is being manipulative and playing games. Explained to him that "We're not playing games and that we will restart it after lunch so that then he can leave his arm straight and he will leave it alone." The patient agreed. He said "You know Sha, you're right my said I was stubborn" He laughed and said "I am a stubborn son of a bitch." I said "Well, I agree with your ." He smiled and went and sat at the dining room table.
--- NOTE | 2020-01-22 11:28 | PN ---
PATIENT:POLA AN MEDICAL RECORD: [id number] LOCATION:[facility] ADMISSION DATE: 12/30/19 PROGRESS NOTE DATE OF SERVICE: 01/21/2020 SUBJECTIVE: The patient's case was discussed with staff. He has no new complaint. OBJECTIVE: The patient is in good behavioral control. He has poor insight about his situation. He is polite, cooperative, and interactive. He is also compliant with medications. At this point, I am going to maintain him on current medications. I am very pleased with the results and I attributed to the Prolixin decanoate. TRANSINT:[id number] Voice Confirmation ID: [id number] DOCUMENT ID: [id number] MELISSA CAPPS MD at 1128 CC: [id number] DICTATION DATE: 01/21/20 1536 SLEEVE SETTER: 01/22/20 0056 ADM IN [facility] [address] [place] [address]
--- NOTE | 2020-01-22 12:15 | NUR ---
The patient is attention seeking and he says "Sha" every few minutes he wants the IV restarted. Explained to him that we will restart it after lunch. He agrees that he will leave it in.
--- NOTE | 2020-01-22 13:25 | NUR ---
Started the patient's IV fluid after flushing with saline, but then he requested to have the IV unhooked so that he can use the bathroom. The patient continues to use the toilet and doesn't want to take the IV pole in the bathroom with him. At this time the patient does not want the IV to infuse.
[2020-01-22 14:43] LABS: BASOPHILS 0.1 % (0-2); EOSINOPHILS 2.5 % (0-7); HEMATOCRIT 42.4 % (42.0-54.0); HEMOGLOBIN 14.5 g/dL (13.5-17.5); IMMATURE GRANULOCYTES 0.8 % (0-5); LYMPHOCYTES 9.4 % (15-50); MCH 31.6 pg (26.0-34.0); MCHC 34.2 g/dL (31.0-37.0); MCV 92.4 fL (80.0-100.0); MONOCYTES 6.8 % (2-11); NEUTROPHILS 80.4 % (40-80); PLATELET COUNT 270 10x3/uL (130-400); RBC 4.59 10x6/uL (4.20-6.10); RDW 12.4 % (11.5-14.5)
[2020-01-22 14:56] LABS: CALC OSMOLALITY 258 mosm/kg (275-300); CALCIUM 9.3 mg/dL (8.5-10.1); CARBON DIOXIDE 28.7 mmol/L (21.0-32.0); CHLORIDE - SERUM 91 mmol/L (98-107); CREATININE - SERUM 0.9 mg/dL (0.6-1.3); GLUCOSE 177 mg/dL (74-106); POTASSIUM - SERUM 4.4 mmol/L (3.5-5.1); SODIUM 126 mmol/L (136-145); UREA NITROGEN 19 mg/dL (7-18); eGFR NON AFRICAN AMERICAN 89 mL/min (90-120)
[2020-01-22 14:59] LABS: WBC 14.3 10x3/uL (4.8-10.8)
--- NOTE | 2020-01-22 15:58 | NUR ---
The patient has been attention seeking all day. He continues to call my name every few minutes and ask a question or tell a story. He is vascillating between feeling so awful saying "You know I am a diabetic and feel weak" to making complaints about how he fell on the floor and "I heard staff say they were going to call a code mcduffie and give me a shot." Explained to him that is not was said. He slid off of the toilet and said his blood sugar is low and he was weak. Explained to him that we said "Roll over, get on your knees and push up on your w/c or we will have to call a code muscle." He said "Oh, I'm sorry Sha." The patient continues to try to manipulate and receive attention. He again has chosen to have his IV out.
--- NOTE | 2020-01-22 17:48 | NUR ---
PT CONT TO MAKE HARSH AND OVEREXAGGARATED COUGHING. PT CONTS TO COUGH MORE WHEN DOCTOR IS PRESENT. LUNG SOUND CLEAR BILATERAL AND 4X QUADS. PT WOULD NOT ALLOW STAFF TO IRRIGATOR IV FOR SODIUM. COVID SWAB ORDERED AND COUGH MEDICATION ORDERED.
--- NOTE | 2020-01-22 18:30 | NUR ---
The patient pulled his entire IV cath out of his arm, provided a piece of guaze and bandaid. He said "Oh, you can restart it." Alec Nuñez RN called Dr. Iniguez and Dr. Coughlin wants the IV restarted.
--- NOTE | 2020-01-22 19:06 | PN ---
PATIENT:POLA AN MEDICAL RECORD: [id number] LOCATION:[facility] ADMISSION DATE: 12/30/19 PROGRESS NOTE DATE OF SERVICE: 01/22/2020 SUBJECTIVE: The patient's case was discussed with staff. He has no new complaint. OBJECTIVE: The patient's mood is significantly better. He is denying thoughts of harming himself or others. He is engaged in some attention seeking and help rejecting behaviors, but on the whole, he is much more manageable and appropriate. ASSESSMENT: 1. Schizophrenia. 2. Dementia. PLAN: The patient will be maintained on current medicines, which I have reviewed. I am going to start him on Namenda at a dose of 5 mg twice daily. He will be monitored for clinical changes associated with its use and I anticipate he can be transitioned out of the hospital soon if this level of improvement is maintained. I am also going to check a CBC and BMP. He is hyponatremic. TRANSINT:[id number] Voice Confirmation ID: [id number] DOCUMENT ID: [id number] MELISSA CAPPS MD at 1906 CC: [id number] DICTATION DATE: 01/22/20 1231 GAS DISTRIBUTION PLANT OPERATOR: 01/22/20 1246 ADM IN [place] [id number] [place] [address]
--- NOTE | 2020-01-22 19:38 | NUR ---
ATTEMPTED TO START IV ON PT. HE REFUSES. HE STATES "IF YOU DONT START THE IV I WILL ." ATTTEMPTED TO REDIRECT AND OFFERED TO TRY AGAIN. HE REFUSES TO ALLOW ME. UNABLE TO REDIRECT. WILL CONTINUE TO MONITOR.
[2020-01-22 20:00] VITALS: BP 109/73
--- NOTE | 2020-01-22 21:50 | NUR ---
ATTEMPTED TO START AN IV AND WAS UNABLE TO GET ON FIRST STICK. PT REFUSED ANOTHER ATTEMPT.
--- NOTE | 2020-01-23 01:17 | NUR ---
REINFORMED PT THAT HE IS TO REMAIN IN HIS ROOM UNTIL HIS PENDING COVID 19 RESULTS ARE IN. PT IS DEMANDING AND CONTINUE TO LEAVE HIS ROOM DESPITE BEING ASKED TO GET BACK INTO HIS ROOM PER COVID POLICY. PT GOES INTO HIS ROOM AND STATES "FUCK YOU ALL, ARE YOU COMING WITH THAT SHOT SINCE I WONT LISTEN?" WILL CONTINUE TO MONITOR.
--- NOTE | 2020-01-23 11:15 | NUR ---
The patient remains in droplet precaution isolation. He coughs when he is awake, but his lungs are clear. The cough sounds like it is in his throat. His bilateral legs remain red and edematous. He is child like, manipulative, and attention seeking. His right great toe does not have a bandage. The toenail was removed yesterday by Dr. Chanel. The patient did not want this nurse to look at the toe or touch it. Provide prescribed meds. The patient was compliant with all medications to include his Lasix injection. He has slept a lot of the morning and he has not been coughing. Continue POC.
--- NOTE | 2020-01-23 12:29 | NUR ---
Noted the patient SARS test is negative. Spoke to the cad programmer Sanjuana Boyer RN and she states the patient is now able to come off of isolation and go back into the day room.
--- NOTE | 2020-01-23 12:38 | NUR ---
Spoke to the patient and let him know his SARS test is negative and he can now get dressed and come back to the day room. Provided him some clean pants and a shirt. Will see if he will allow a dressing to his right great toe. Then provide socks for him. The patient is coughing. He says "I'm clear with this cough?" Explained to him that "Yes, his lungs are clear, the cough may be from something else such as allergies?" Awaiting patient to get up out of the bed.
--- NOTE | 2020-01-23 18:40 | NUR ---
Cleansed the patient's right great toe and applied a new gauze with tape.
--- NOTE | 2020-01-23 20:00 | NUR ---
RECEIVED IN DINING ROOM AREA. SOCIALIZING WITH A PEER. CALM AND COOPERATIVE WITH CARE AND ASSESSMENT. NO SIGNS OF AGGRESSION. REDIRECT AND REORIENT NEEDED. CONTINUES TO BE SOCIAL WITH PEERS. CONTINUE PLAN OF CARE.
[2020-01-23 20:37] VITALS: BP 144/71
[2020-01-24 07:29] LABS: CALC OSMOLALITY 244 mosm/kg (275-300); CALCIUM 8.4 mg/dL (8.5-10.1); CARBON DIOXIDE 26.9 mmol/L (21.0-32.0); CHLORIDE - SERUM 86 mmol/L (98-107); CREATININE - SERUM 0.7 mg/dL (0.6-1.3); GLUCOSE 150 mg/dL (74-106); POTASSIUM - SERUM 4.1 mmol/L (3.5-5.1); UREA NITROGEN 17 mg/dL (7-18); eGFR NON AFRICAN AMERICAN > 90 mL/min (90-120)
[2020-01-24 07:30] LABS: SODIUM 119 mmol/L (136-145)
--- NOTE | 2020-01-24 08:00 | NUR ---
REC'D PT IN HALLWAY IN W/C WITH PEERS. CALM AND COOPERATIVE WITH ASSESSMENT AT THIS TIME. PRESCRIBED MEDS PROVIDED ORDERED. MED COMPLIANT. NO BEHAVIORS AT THIS TIME. FALL PRECAUTIONS IN PLACE. LASIX ON HOLD PER MD ORDER. WILL CPOC.
[2020-01-24 09:21] VITALS: BP 130/60
--- NOTE | 2020-01-24 12:27 | PN ---
PATIENT:POLA AN MEDICAL RECORD: [id number] LOCATION:[facility] ADMISSION DATE: 12/30/19 PROGRESS NOTE DATE OF SERVICE: 01/23/2020 SUBJECTIVE: The patient's case was discussed with staff. He has no new complaint. OBJECTIVE: The patient is cooperative and much less agitated than he previously was. His sodium has only come up a small amount from yesterday and he is continuing to be medication compliant. ASSESSMENT: 1. Dementia. 2. Schizophrenia. PLAN: Current medicines have been reviewed and will be maintained. Long-term prognosis is guarded. TRANSINT:[id number] Voice Confirmation ID: [id number] DOCUMENT ID: [id number] MELISSA CAPPS MD at 1227 CC: [id number] DICTATION DATE: 01/23/[address] JUDGE: 01/24/20 0145 ADM IN [place] [id number] [place] [address]
[2020-01-24] MEDS ORDERED: AUGMENTIN 875-11 TAB PO (16:27)
[2020-01-24] MEDS ORDERED: FEXOFENADINE HC60 MG PO (16:27)
[2020-01-24] MEDS ORDERED: PROLIXIN 5 MG TA5 MG PO (16:29)
[2020-01-24] MEDS ORDERED: NAMENDA5 MG PO (16:29)
[2020-01-24] MEDS ORDERED: FUROSEMIDE20 MG PO (16:30)
[2020-01-24] MEDS ORDERED: OSCAL D TABLET PO (16:30)
[2020-01-24] MEDS ORDERED: LASIX INJ40 MG/4 ML IM (16:30)
[2020-01-24] MEDS ORDERED: THERMOTABS 1 GM1 GM PO (16:30)
[2020-01-24] MEDS ORDERED: [UNRECOGNIZED DRUG - OTHER] TOPICAL (16:31)
[2020-01-24] MEDS ORDERED: Senokot-S Tablet PO (16:31)
[2020-01-24 20:05] VITALS: BP 141/67
--- NOTE | 2020-01-25 02:25 | NUR ---
B) Patient is alert and oriented to person and place, tells staff 'God bless you ' several times a shift today, quiet and keeping to himself, I) Administered scheduled medications as ordered, monitored for safety R) Mediation compliant except for B/P medication and Statins at HS, P) Continue plan of care.
--- NOTE | 2020-01-25 08:21 | PN ---
PATIENT:POLA AN MEDICAL RECORD: [id number] LOCATION:[facility] ADMISSION DATE: 12/30/19 PROGRESS NOTE DATE OF SERVICE: 01/24/2020 SUBJECTIVE: The patient's case was discussed with staff. He has no new complaint. OBJECTIVE: The patient is in good behavioral control. He has no thoughts of self-harm and he is tolerating his medicines well. ASSESSMENT: 1. Dementia. 2. Schizophrenia. PLAN: The patient will be transitioned out of the hospital tomorrow. Followup will be with his primary care physician at the group home. TRANSINT:[id number] Voice Confirmation ID: [id number] DOCUMENT ID: [id number] MELISSA CAPPS MD at 0821 CC: [id number] DICTATION DATE: 01/24/20 1625 DRY END TESTER: 01/24/20 2314 ADM IN [place] [id number] [place] [address]
--- NOTE | 2020-01-25 08:53 | NUR ---
PT REFUSED ALL MEDS THIS SHIFT. PT LAYED SELF BATHROOM FLOOR THIS SHIFT. STAFF 4X ASSIST WITH PT. PT REFUSED TO ASSIST WITH GETUP. PT PULLED BACK ON STAFF MEMBERS WHEN ATTEMPTED TO ASSIST. STAFF ATTEMPTED TO REDIRECT BEHAVIORS. UNABLE TO REDIRECT AT THIS TIME.
--- NOTE | 2020-01-25 16:21 | NUR ---
PT IS SITTING IN W/C AT THIS TIME IN THE HALLWAY. PT IS ALERT AND ORIENTED TO PERSON, PLACE. REDIRECT PTS BEHAVIOR AND REORIENT IF NEEDED. PT REFUSED MEDS THIS SHIFT. PT MAKES NEEDS KNOWN. PT DOES VERY ATTENTION NEEDS ACTS AT TIMES. CHAIR ALARM IN PLACE AND ACTIVE. WILL CONT PLAN OF CARE.
[2020-01-25 20:28] VITALS: BP 141/75
--- NOTE | 2020-01-25 22:40 | NUR ---
B) Patient is alert and oriented to person and place, hyper spiritism this shift I) Administered scheduled medications as ordered, redirected as needed, R) mediation compliant, quiet and keeping to himself, P) Continue plan of care.
--- NOTE | 2020-01-26 07:32 | NUR ---
REC'D PT IN W/C BY NURSES STATION. PT IS SMILING THIS MORNING AND BEING VERY FRIENDLY WITH STAFF. CALM AND COOPERATIVE WITH ASSESSMENT. PRESCRIBED MEDS PROVIDED ORDERED. MED COMPLIANT. NO BEHAVIORS NOTED AT THIS TIME. FALL PRECAUTIONS IN PLACE FOR SAFETY. WILL CPOC.
[2020-01-26 09:16] VITALS: BP 158/77
--- NOTE | 2020-01-26 15:57 | NUR ---
Nutrition Follow-up: Diet: Diabetic + Gatorade TID PO intake: ~76% average x last 9 meals Last BM: 01/23/20. Wt: 297# (01/23/20); Admit Wt: 289# (12/30/19) Meds noted: NaCl, lasix, miralax, senokot, MagOx, metformin. Labs noted (01/24/20): Na 119(CL), Cl 86(L), Glu 150(H) Noted patient with h/o CHF and weight trend up ~8# since admit. Gatorade on meal trays for critically low Na. Recommend continue current diet. RD following.
--- NOTE | 2020-01-26 15:58 | PN ---
PATIENT:POLA AN MEDICAL RECORD: [id number] LOCATION:[facility] ADMISSION DATE: 12/30/19 PROGRESS NOTE DATE OF SERVICE: 01/25/2020 SUBJECTIVE: The patient's case was discussed with staff. He has no new complaint. OBJECTIVE: The patient is angry about being transferred to a [facility] in [place]. It has been explained to him that it is only for a 2-week quarantine until he can be returned to the ch[facility] in [place]. Nevertheless, he is angry and hopefully the anger will not be an impediment to his placement in that chcf. TRANSINT:[id number] Voice Confirmation ID: [id number] DOCUMENT ID: [id number] MELISSA CAPPS MD at 1558 CC: [id number] DICTATION DATE: 01/25/20 1534 HELP DESK REP: 01/26/20 0008 ADM IN [facility] [address] [place] [address]
[2020-01-26 20:01] VITALS: BP 142/63
--- NOTE | 2020-01-26 23:45 | NUR ---
B) Patient is alert and orientd to person and place, calm and cooperative this shift, hyper orthodoxy, I) Administered scheduled medications as ordered, redirected as needed. R) Medication compliant, pleasant this shift, P) Continue plan of care.
--- NOTE | 2020-01-27 08:21 | NUR ---
The patient is in a w/c, he is coughing, but lungs are clear. His feet and legs are edematous and he has a bandage on his right great toe where the toenail was removed. Provide prescribed meds. He is pleasant at the moment, but he is labile. He is oriented x3. Continue POC.
[2020-01-27 09:25] VITALS: BP 157/77
--- NOTE | 2020-01-27 11:24 | NUR ---
NURSE ADMINISTED GEODON 20 MG AND ATIVAN [address] CAPPS PRN ORDERS FOR TRAVEL. PT TOLERATED WELL. PT IS TRANSFERRING TO [facility] IN [place] VIA EMS. WILL CONT PLAN OF CARE. WILL MONITOR FOR EFFECTIVENESS.
--- NOTE | 2020-01-27 11:36 | NUR ---
REPORT CALLED TO HUMBERTO AT [facility]. NURSE FAXED PAPERWORK TO [phone]. PT IS GOING TO ROOM 406. [facility] CALLED FOR TRANSPORT. PT DID RECIEVE MEDICATIONS PRIOR TO CALLING [facility]. NURSE GAVE PREVIOUS HISTORY, MEDICAL DIAGOSIS. ALL PAPERWORK FAXED AND PAPER COPY WILL BE SENT WITH PT AND NEGATIVE COVID RESULTS.
--- NOTE | 2020-01-27 12:01 | PN ---
PATIENT:POLA AN MEDICAL RECORD: [id number] LOCATION:[facility] ADMISSION DATE: 12/30/19 PROGRESS NOTE DATE OF SERVICE: 01/26/2020 SUBJECTIVE: The patient's case was discussed with staff. He has no new complaint. OBJECTIVE: The patient denies that he would seek to harm himself or others. He is pleasant, cooperative and is wanting to be discharged. He is angry about having to go to a [facility] for 2 weeks before sent back to his regular [facility], but these are the policies on quarantining the patient and there is no way around it. TRANSINT:[id number] Voice Confirmation ID: [id number] DOCUMENT ID: [id number] MELISSA CAPPS MD at 1201 CC: [id number] DICTATION DATE: 01/26/20 1608 TOBACCO HANGER: 01/27/20 0317 ADM IN [place] [id number] [place] [address]
--- NOTE | 2020-01-27 12:45 | NUR ---
PT DISCHARGED VIA [facility]. PT TOLERATED D/C WELL. PT WAS IN GOOD MODO ABOUT DISCHARGING. NURSE SENT PAPERWORK WITH PT AND FAXED COPY OF PAPERWORK. BELONGINGS SENT WITH PT INCLUDING ITEMS IN [facility]E. REPORT PREVIOUSLY CALLED. NURSE CALLED [facility] TO RETRIEVE PT W/C FOR DISCHARGE.
== END 2020-01-27 12:48 | DRG 884 ==
LOC: D.REHAB 11:25 → D.PSYCH 12:58
PROVIDERS: Family Medicine; ADMIT Psychiatry & Neurology Psychiatry; ATTEND Psychiatry & Neurology Psychiatry
DX: F01.51 Vascular dementia, unspecified severity, with behavioral disturbance (principal); E87.1 Hypo-osmolality and hyponatremia; L03.90 Cellulitis, unspecified; F20.9 Schizophrenia, unspecified; F41.8 Other specified anxiety disorders; I11.0 Hypertensive heart disease with heart failure; I50.9 Heart failure, unspecified; E78.5 Hyperlipidemia, unspecified; E11.40 Type 2 diabetes mellitus with diabetic neuropathy, unspecified; K21.9 Gastro-esophageal reflux disease without esophagitis; E66.9 Obesity, unspecified; Z68.30 Body mass index [BMI] 30.0-30.9, adult; I48.91 Unspecified atrial fibrillation; E61.2 Magnesium deficiency; K59.00 Constipation, unspecified; E55.9 Vitamin D deficiency, unspecified; M19.90 Unspecified osteoarthritis, unspecified site; J30.9 Allergic rhinitis, unspecified; M25.511 Pain in right shoulder; R05 Cough; L21.9 Seborrheic dermatitis, unspecified; L40.9 Psoriasis, unspecified; R26.9 Unspecified abnormalities of gait and mobility; J98.4 Other disorders of lung; S99.921A Unspecified injury of right foot, initial encounter; X58.XXXA Exposure to other specified factors, initial encounter